=== PATIENT | female | born 1950 | race Caucasian/White ===

== ENCOUNTER 2019-10-01 11:26 | Inpatient (IN) | payer MEDICARE, OTHER ==
[~2019-10-01] VITALS: Ht 160 cm; Wt 100.0 kg
--- NOTE | ~2019-10-01 | HEMODYNAMI ---
PATIENT:MILES VU MEDICAL RECORD: [id number] : 52 LOCATION:[facility] D.2126 [facility]# [id number] ADMISSION DATE: 10/01/19 Generatedon:10/02/201914:51 Patient name: MILES VU Patient #: [id number] SSN: [id number] : 1950 Date of study: 10/02/2019 Page: Of Hemodynamic Procedure Report Patient Data Patient Demographics Procedure consent was obtained First Name: MILES Gender: Female Last Name: MIRELLA : 1950 Middle Initial: A Age: 69 year(s) Patient #: [id number] Race: SSN: [id number] Additional ID: [id number] Contact details Address: [facility] [address] State: [place] City: [place] Zip code: [address] Past Medical History Allergies Allergen Reaction Date Comments Reported Other allergy 10/02/2019 sULFA, cODEINE Admission Admission Data Admission Date: 10/01/2019 Admission Time: 14:49 Arrival Date: 10/02/2019 Arrival Time: 0:00 Admit Source: Other Insurance Payor: Medicare Room #: D.2126 [facility] #: [id number] Height (in.): 63 BSA: 2.02 (m2) Height (cm.): 160.02 BMI: 39.05 (kg/m2) Weight (lbs.): 220.46 Weight (kg.): 100 Lab Results Lab Result Date: 10/02/2019 Lab Result Time: 0:00 Biochemistry Name Units Result Min Max BUN mg/dl 20 --(----)*- 7 18 Creatinine mg/dl 0.7 --(*---)-- 0.6 1.3 eGFR ml/min 88.80561 -*(----)-- 90 120 NONAFRICAN CBC Name Units Result Min Max Hematocrit % 38.1 *-(----)-- 42 54 Hemoglobin g/dl 11.7 *-(----)-- 13.5 17.5 Procedure Procedure Types Cath Procedure Diagnostic Procedure C [facility] w/Coronaries Procedure Description Procedure Date Procedure Date: 10/02/2019 Procedure Start Time: 14:39 Procedure End Time: 14:49 Procedure Staff Name Function Ko Balderas MD Performing Physician Ellie Schultz RT Monitor Reyna Garcia RT Monitor Aissatou Jacobson RN Nurse Topher Murphy RT Scrub Procedure Data Cath Procedure Fluoroscopy Diagnostic fluoroscopy Total fluoroscopy Time: 2.1 time: 2.1 min min Diagnostic fluoroscopy Total fluoroscopy dose: 449 dose: 449 mGy mGy Contrast Material Contrast Material Type Amount (ml) Isovue 300 53 Entry Location Entry Primary Successful Side Size Upsize Upsize Entry Closure Pavon ccessful Closure Location (Fr) 1 (Fr) 2 (Fr) Remarks Device Remarks Radial Right 6 Fr Mechanical artery Short Compression Estimated blood loss: 5 ml Diagnostic catheters Device Type Used For End Catheter Placement DIAGNOSTIC York 110cm 5 Procedure Fr catheter ([id number]) Procedure Complications No complications Procedure Medications Medication Administration Route Dosage Oxygen etCO2 Nasal cannula 2 l/min Lidocaine 2% added to field 20 Heparin Flush Bag added to field 2 bags (1000units/500ml NS) 0.9% NaCl I.V. 100 ml/hr Versed I.V. 1 mg Fentanyl I.V. 100 mcg Radial Cocktail I.A. 1 syringe (Verapamil 2mg/Nitro 400mcg/Heparin 1500units) Fentanyl I.V. 50 mcg Hemodynamics Rest BSA: 2.02 (m2) HGB: 11.7 (g/dl) O2 Consumption: Estimated: 216.91 (ml/min) O2 Co nsumption indexed: Estimated:107.38 (ml/min/m) Heart Rate: 109 (bpm) Pressure Samples Time Site Value (mmHg) Purpose Heart Use Rate(bpm) 14:42 LV 153/-5,0 Snapshot 94 Gradients Valve Time Site Site Mean SEP/DFP Peak To Heart Use 1 2 (mmHg) (sec/min) Peak Rate (mmHg) (bpm) Aortic 14:43 LV AO 93 Snapshots Pre Cath Intra NCS Post Cath Vital Signs Time Heart Resp SPO2 etCO2 NIBP Rhythm Pain Sedation Rate (ipm) (%) (mmHg) (mmHg) Status Level (bpm) 14:31:49 94 19 94 37.4 138/71(95) NSR 0 (11) 10(A) , No pain 14:36:07 93 16 94 0 123/63(94) NSR 0 (11) 10(A) , No pain 14:40:23 88 12 95 0 118/65(90) NSR 0 (11) 9(A) , No pain 14:44:37 91 15 95 0 117/57(73) NSR 0 (11) 9(A) , No pain 14:48:53 95 18 96 2.9 125/65(91) NSR 0 (11) 9(A) , No pain Medications Time Medication Route Dose Verified Delivered Reason Notes Effectiveness by by 14:33:52 Oxygen etCO2 2 l/min Ko Buffie used for Nasal Andrey Jacobson RN procedure cannula 14:33:57 Lidocaine 2% added 20ml Ko Ko for local to vial Andrey Balderas MD anesthetic field 14:34:02 Heparin Flush added 2 bags Ko Ko used for Bag to Andrey Balderas MD procedure (1000units/500ml field NS) 14:34:10 0.9% NaCl I.V. 100 Ko Buffie Per ml/hr Andrey Jacobson RN physician 14:37:15 Versed I.V. 1 mg Ko Buffie for sedation Andrey Jacobson RN 14:37:29 Fentanyl I.V. 100 mcg Ko Buffie for sedation Andrey Jacobson RN 14:40:51 Radial Cocktail I.A. 1 Ko Ko for (Verapamil syringe Andrey Balderas MD vasodilation 2mg/Nitro 400mcg/Heparin 1500units) 14:41:00 Fentanyl I.V. 50 mcg Ko Ko for sedation Andrey Balderas MD Procedure Log Time Note 14:11:43 Admit Source: Other 14:12:10 Procedure Status Urgent Heart Cath (IP). 14:12:12 Aissatou Jacobson RN sent for patient. Start room use. 14:12:14 Time tracking: Regular hours (M-F 7:00 - 5:00) 14:12:19 Plan of Care:Hemodynamics will remain stable., Cardiac rhythm will remain stable., Comfort level will be maintained., Respiratory function will remain adequate., Patient/ family verbilizes understanding of procedure., Procedure tolerated without complication., Recovers from procedure without complications.. 14:13:03 H&P Date Dictated: 10/01/2019 Within 30 days and on chart., New H&P dictated by physician.. 14:13:38 Patient allergic to Other allergysULFA, cODEINE 14:14:20 Lab Result : BUN 20 mg/dl 14:14:20 Lab Result : Creatinine 0.7 mg/dl 14:14:20 Lab Result : eGFR NONAFRICAN 88.24642 ml/min 14:14:20 Lab Result : Hemoglobin 11.7 g/dl 14:14:20 Lab Result : Hematocrit 38.1 % 14:15:20 Lab results completed and on chart. 14:15:31 Stress Test: no; N/A NSTEMI 14:18:48 Risk of Mortality: .1 14:18:51 Risk of blood transfusion: 1.2 14:18:54 Risk of DAVID: .7 14:19:13 Informed consent obtained and on chart 14:20:26 Arrival Date: 10/02/2019 12:00:00 AM 14:20:30 Insurance Payor : Medicare 14:20:51 Patient Height : 63 inches 14:20:54 Patient Weight : 220.46 lbs 14:21:31 Patient received from Med II to CCL 1 Alert and oriented. Tansferred to table in Supine position. 14:21:32 Warm blankets applied, and tarun hugger turned on for patient comfort. 14:21:32 Correct patient and procedure confirmed by team. 14:21:33 ECG and BP/O2 sat monitors applied to patient. 14:21:37 Pre-procedure instructions explained to patient. 14:21:38 Pre-op teaching completed and patient verbalized understanding. 14:21:41 Family unavailable. 14:21:43 Patient NPO since Midnight. 14:21:49 Alarms reviewed by R. N. 14:21:50 Sharps counted by scrub and verified by R.N. 14:22:08 ACC Patient presents with Non-STEMI CCS Anginal Class 1--Ordinary physical activity does not cause angina, angina occurs with strenuos, rapid, or prolonged activity.. 14:30:43 Vital chart was started 14:30:47 Full Disclosure recording started 14:30:50 Is the patient allergic to Iodine/contrast media? No. 14:30:51 Was the patient premedicated? Yes 14:30:52 Is patient on blood thinner?No 14:30:55 Patient diabetic? Yes. 14:31:13 If on Metformin: Last Dose? 09/30/2019 14:31:16 Patient not . Patient is over age 55. 14:31:20 Previous problem with sedation/anesthesia? No ? 14:31:22 Snore? No 14:31:23 Sleep apnea? No 14:31:25 Deviated septum? No 14:31:26 Opens mouth fully? Yes 14:31:27 Sticks out tongue? Yes 14:31:32 Airway obstruction? No ? 14:31:34 Dentures? No ? 14:31:39 Baseline sample Acquired. 14:31:49 Pre procedure: right dorsailis pedis pulse 2+ Normal; easily identifiable; not easily obliterated 14:31:52 Modified David's test Ulnar < 7 seconds 14:31:55 Patient pain scale 0/10 ?. 14:32:07 Right Radial & Right Groin area was prepped with chlora-prep and draped in sterile fashion 14:32:27 IV patent on arrival in left antecubital with 0.9% NaCl at [facility]. 14:33:52 Oxygen 2 l/min etCO2 Nasal cannula was administered by Aissatou Jacobson RN; used for procedure; Verbal order read back and verified. 14:33:57 Lidocaine 2% 20ml vial added to field was administered by Ko Balderas MD; for local anesthetic; Verbal order read back and verified. 14:33:59 Rhythm: sinus rhythm 14:34:02 Heparin Flush Bag (1000units/500ml NS) 2 bags added to field was administered by Ko Balderas MD; used for procedure; Verbal order read back and verified. 14:34:03 Use device set Radial Dx or PCI 14:34:05 ACIST Syringe (05979) opened to sterile field. 14:34:06 Medline Cath Pack ([id number]) opened to sterile field. 14:34:07 Bag Decanter (2002S) opened to sterile field. 14:34:08 ACIST Hand Control (39256) opened to sterile field. 14:34:09 ACIST Manifold (92732) opened to sterile field. 14:34:10 0.9% NaCl 100 ml/hr I.V. was administered by Buffie Jacobson RN; Per physician; Verbal order read back and verified. 14:34:13 Tegaderm 4 x 4 (1626W) opened to sterile field. 14:34:14 MBrace Wrist Support ([id number]) opened to sterile field. 14:34:15 NEEDLE Cook 21G 4cm Radial (D86470) opened to sterile field. 14:34:17 EMERALD Guide Wire (171-488) opened to sterile field. 14:34:17 SHEATH 6FR RAIN (0932246) opened to sterile field. 14:35:07 Zero performed for pressure channel P1 14:35:11 --------ALL STOP TIME OUT------ 14:35:12 Final Timeout: patient, procedure, and site verified with staff and physician. All members of the team are in agreement. 14:35:14 Right Radial & Right Groin site verified by team. 14:35:19 Fire Safety Assessment: A--An alcohol-based skin anteseptic being used preoperatively., C--Open oxygen or nitrous oxide is being used., D--An ESU, laser, or fiber-optic light is being used. 14:35:24 Physical assessment completed. ASA score P 2 - A patient with mild systemic disease as per Ko Balderas MD. 14:35:27 2) 60-89 Mildly reduced kidney function, and other findings (as for stage 1) point to kidney disease. 14:35:32 Maximum allowable contrast dose (3.7 X eGFR X 0.75)244 ml. 14:35:37 Sedation plan: IV Moderate Sedation Medication:Versed, Fentanyl 14:36:31 Zero performed for pressure channel P1 14:36:42 Zero performed for pressure channel P1 14:36:50 Zero performed for pressure channel P1 14:37:04 Zero performed for pressure channel P1 14:37:15 Versed 1 mg I.V. was administered by Aissatou Jacobson RN; for sedation; Verbal order read back and verified. 14:37:29 Fentanyl 100 mcg I.V. was administered by Aissatou Jacobson RN; for sedation; Verbal order read back and verified. 14:38:10 Procedure started. 14:39:16 Local anesthetic to right radial artery with Lidocaine 2% by Ko Balderas MD.INITIAL ACCESS ONLY 14:40:22 A 6 Fr Short sheath was inserted into the Right Radial artery 14:40:31 A DIAGNOSTIC York 110cm 5 Fr catheter (123140) was advanced over the wire and used for Procedure. 14:40:47 TUBING High Pressure Extension Tubing (Andrey) (ZX2126N) opened to sterile field. 14:40:51 Radial Cocktail (Verapamil 2mg/Nitro 400mcg/Heparin 1500units) 1 syringe I.A. was administered by Ko Balderas MD; for vasodilation; Verbal order read back and verified. 14:41:00 Fentanyl 50 mcg I.V. was administered by Ko Balderas MD; for sedation; Verbal order read back and verified. 14:41:40 LV gram done using CONTRERAS 14:41:44 Injector settings: Ml/sec: 5, Volume: 15, 14:42:47 LV hemodynamics recorded. 14:43:01 EF : 60 % 14:43:57 LCA angiography performed. 14:46:11 RCA angiography performed. 14:46:18 ACCDominant side:Left 14:46:29 Catheter removed. 14:46:42 Sheath removed intact; hemostasis achieved with Mechanical Compression to the Right Radial artery. 14:46:46 ZEPHYR REGULAR TR BAND (048662) opened to sterile field. 14:46:50 Procedure ended.(Physican Out) 14:46:55 Fluoroscopy time 02.10 minutes. 14:47:00 Fluoroscopy dose: 449 mGy 14:47:00 Flurop Dose total: 449 14:47:05 Dose Area Product 34393 mGy/cm. 14:47:23 Contrast amount:Isovue 300 53ml. 14:47:26 Maximum allowable dose exceeded? No. 14:47:27 Sharps counted by scrub and verified by R.N. 14:47:31 Geneva band inflated with 10cc of air. 14:47:42 Post-procedure physical assessment completed. ASA score P 2 - A patient with mild systemic disease as per Ko Balderas MD. 14:47:45 Post procedure rhythm: unchanged. 14:47:48 Estimated blood loss: 5 ml 14:47:50 Post procedure instruction explained to patient.Patient verbalizes understanding. 14:47:51 Patient needs reinforcement of post procedure teaching. 14:49:07 Procedure and supply charges have been captured, reviewed, submitted and are correct. 14:49:12 Procedure Complication : No complications 14:49:15 Vital chart was stopped 14:49:16 [facility] Findings: mild to moderate CAD (<70%) 14:49:18 Operative report dictated upon procedure completion. 14:49:21 See physician's report for complete and final results. 14:49:22 See physician's report for complete and final results. 14:49:24 Report given to [facility]. 14:49:37 Patient transfered to [facility] with Bed. 14:49:40 Procedure ended. 14:49:40 Full Disclosure recording stopped 14:50:06 End room use (Document Last) 14:50:18 End room use (Document Last) 14:50:36 End room use (Document Last) Device Usage Item Name Manufacture Quantity Catalog Hospital Part Current Minima l Lot# / Number Charge Number Stock Stock Serial# Code ACIST Acist 1 09199 588974 [id number] [id number] 20 Syringe Medical (07975) Systems Inc Medline Medline 1 [id number] 203270 56611 121559 5 Cath Pack ([id number]) Bag Microtek 1 075407 67130 665413 5 Decanter Medical Inc. () ACIST Hand Acist 1 64475 591685 494463 666532 5 Control Medical (23612) Systems Inc ACIST Acist 1 67722 248067 039516 636949 5 Manifold Medical (79820) Systems Inc Tegaderm 4 3M 1 1626W 735327 992765 511914 5 x 4 (1626W) MBrace Advanced 1 140-0250-00 675510 95625 771675 5 Wrist Vascular Support Dynamics ([id number]) NEEDLE Cook Cook Medical 1 J08106 835815 223400 996349 5 21G 4cm Radial (Z52633) EMERALD Cardinal 1 502-455 199610 924997 892571 5 Guide Wire [facility] (835-455) SHEATH 6FR Cardinal 1 2714796 317499 2956018 072066 5 [facility] (3118867) DIAGNOSTIC Terumo 1 40-0273 536640 704864 960752 5 York 110cm 5 Fr catheter (276554) TUBING High Merit 1 [id number] 953959 35221 037614 10 Pressure Medical Extension Tubing (Balderas) (AY2316U) ZEPHYR Cardinal 1 082333 472130 9555249 679180 5 REGULAR TR Health BAND (023872) Signature Audit Beaman Stage Time Signature Unsigned Intra-Procedure 10/02/2019 Reyna Garcia 2:50:18 PM RT(R) Intra-Procedure 10/02/2019 Aissatou Jacobson RN 2:50:36 PM Intra-Procedure 10/02/2019 Ko Balderas MD 2:51:21 PM [facility] [address] [facility]
[2019-10-01] MEDS ORDERED: PIOGLITAZONE15 MG PO ×2 (11:35→11:38)
[2019-10-01] MEDS ORDERED: GLUCOTROL 5 MG T5 MG PO (11:35)
[2019-10-01] MEDS ORDERED: METFORMIN HCL500 M1 PO (11:37)
[2019-10-01] MEDS ORDERED: LIPITOR10 MG PO (11:38)
[2019-10-01] MEDS ORDERED: VASOTEC5 MG (11:39)
[2019-10-01] MEDS ORDERED: CARDIZEM120 MG PO (11:39)
[2019-10-01] MEDS ORDERED: LANTUS SOL100 UNIT/1 (11:40)
[2019-10-01] MEDS ORDERED: LANOXIN125 MCG PO (11:40)
[2019-10-01 12:33] LABS: BASOPHILS 0.1 % (0-2); EOSINOPHILS 0.9 % (0-7); HEMATOCRIT 39.9 % (36.0-48.0); HEMOGLOBIN 12.4 g/dL (12-16); IMMATURE GRANULOCYTES 0.3 % (0-5); LYMPHOCYTES 9.6 % (15-50); MCH 28.8 pg (26.0-34.0); MCHC 31.1 g/dL (31.0-37.0); MCV 92.6 fL (80.0-100.0); MEAN PLATELET VOLUME 8.8 fL (7.4-10.4); MONOCYTES 6.6 % (2-11); NEUTROPHILS 82.5 % (40-80); PLATELET COUNT 362 10x3/uL (130-400); RBC 4.31 10x6/uL (4.00-5.40); RDW 13.9 % (11.5-14.5); WBC 12.3 10x3/uL (4.8-10.8)
[2019-10-01 12:42] LABS: CALC OSMOLALITY 291 mosm/kg (275-300); CALCIUM 9.4 mg/dL (8.5-10.1); CARBON DIOXIDE 25.7 mmol/L (21.0-32.0); CHLORIDE - SERUM 101 mmol/L (98-107); CREATININE - SERUM 1.1 mg/dL (0.6-1.3); GLUCOSE 307 mg/dL (74-106); POTASSIUM - SERUM 5.1 mmol/L (3.5-5.1); SODIUM 138 mmol/L (136-145); UREA NITROGEN 25 mg/dL (7-18); eGFR NON AFRICAN AMERICAN 52 mL/min (90-120)
[2019-10-01 12:47] LABS: INR 1.01 (0.85-1.17); PROTIME 12.8 SECONDS (11.6-15.0)
[2019-10-01 13:04] LABS: ALBUMIN 3.2 g/dL (3.4-5.0); ALKALINE PHOSPHATASE 106 U/L (46-116); ALT (SGPT) 253 U/L (10-68); BILIRUBIN - TOTAL 0.22 mg/dL (0.2-1.3); CKMB 1.5 U/L (0.0-3.6); CREATINE KINASE 52 UL (21-215); MAGNESIUM - SERUM 1.9 mg/dL (1.8-2.4); PRO BNP 485 pg/mL (0-125); PROTEIN - SERUM 7.5 g/dL (6.4-8.2)
[2019-10-01 13:22] LABS: TROPONIN-I 0.181 ng/mL (0.000-0.060)
[2019-10-01 13:51] VITALS: BP 104/60
[2019-10-01 15:30] VITALS: BP 119/64
--- NOTE | 2019-10-01 15:49 | NUR ---
FSBS= 90 MG/DL. DIABETIC MEAL TRAY SERVED.
--- NOTE | 2019-10-01 16:06 | NUR ---
REPORT TO JANETH PAINTER
[2019-10-01 16:10] VITALS: BP 118/62
--- NOTE | 2019-10-01 16:10 | NUR ---
TRANSPORTED TO ROOM #2126, CONDITION STABLE
[2019-10-01 16:30] VITALS: BP 119/64; Ht 160 cm; Wt 100.0 kg
[2019-10-01 19:22] LABS: CKMB 1.6 U/L (0.0-3.6); CREATINE KINASE 54 UL (21-215)
[2019-10-01 19:23] LABS: TROPONIN-I 0.336 ng/mL (0.000-0.060)
--- NOTE | 2019-10-01 20:00 | NUR ---
RECEIVED BEDSIDE REPORT. PATIENT IS ALERT AND ORIENTED, RESTING COMFORTABLY IN BED. RESPIRATIONS ARE EVEN AND UNLABORED. NO S/S OF DISTRESS. NO C/O PAIN. PATIENT WAS CONCERNED ABOUT HER LANTUS NOT BEING ORDERED. PAGED MARLON IZAGUIRRE. NO NEW ORDERS GIVEN. PER MARLON IZAGUIRRE EXPLAINED TO PATIENT THAT WITH CP THEY DON'T LIKE TO ORDER THE LONG LASTING INSULIN. HER REQUEST CAN BE REVISTED IN THE MORNING WHEN DR. PEREIRA OR DR. OLIVA ARE HERE.
[2019-10-01 20:34] VITALS: BP 128/38
[2019-10-02 01:10] VITALS: BP 127/43
[2019-10-02 02:02] LABS: CKMB 1.5 U/L (0.0-3.6); CREATINE KINASE 50 UL (21-215); TROPONIN-I 0.318 ng/mL (0.000-0.060)
[2019-10-02 05:58] VITALS: BP 124/54
[2019-10-02 06:47] LABS: BASOPHILS 0.3 % (0-2); EOSINOPHILS 2.8 % (0-7); HEMATOCRIT 38.1 % (36.0-48.0); HEMOGLOBIN 11.7 g/dL (12-16); IMMATURE GRANULOCYTES 0.1 % (0-5); LYMPHOCYTES 18.3 % (15-50); MCH 28.2 pg (26.0-34.0); MCHC 30.7 g/dL (31.0-37.0); MCV 91.8 fL (80.0-100.0); MEAN PLATELET VOLUME 8.7 fL (7.4-10.4); MONOCYTES 7.5 % (2-11); PLATELET COUNT 377 10x3/uL (130-400); RBC 4.15 10x6/uL (4.00-5.40); RDW 14.1 % (11.5-14.5)
[2019-10-02 07:13] LABS: WBC 7.8 10x3/uL (4.8-10.8)
[2019-10-02 07:14] LABS: ALKALINE PHOSPHATASE 92 U/L (46-116); ALT (SGPT) 160 U/L (10-68); BILIRUBIN - TOTAL 0.31 mg/dL (0.2-1.3); CALC OSMOLALITY 290 mosm/kg (275-300); CARBON DIOXIDE 30.4 mmol/L (21.0-32.0); CHLORIDE - SERUM 105 mmol/L (98-107); CKMB 1.3 U/L (0.0-3.6); CREATINE KINASE 45 UL (21-215); CREATININE - SERUM 0.7 mg/dL (0.6-1.3); GLUCOSE 191 mg/dL (74-106); MAGNESIUM - SERUM 1.6 mg/dL (1.8-2.4); POTASSIUM - SERUM 4.4 mmol/L (3.5-5.1); PROTEIN - SERUM 7.2 g/dL (6.4-8.2); SODIUM 142 mmol/L (136-145); TROPONIN-I 0.287 ng/mL (0.000-0.060); UREA NITROGEN 20 mg/dL (7-18); eGFR NON AFRICAN AMERICAN 88 mL/min (90-120)
--- NOTE | 2019-10-02 07:29 | NUR ---
REPORT RECEIVED FROM COMMUNITY CASE MANAGER AND PATIENT CARE ASSUMED. PATIENT LAYING IN BED ON BACK WITH EYES CLOSED AND BREATHING EVENLY. VSS. DTR ASLEEP AT BS. WILL CONTINUE WITH PLAN OF CARE. SR UP X 2 BED IN LOW POSITION AND CALL LIGHT IN REACH.
[2019-10-02 09:04] VITALS: BP 150/74
--- NOTE | 2019-10-02 10:12 | NUR ---
[id number] SITTIN UP IN BED WATCHING A MOVIE AND DTR AT BS PATIENT IS STABLE AND VSS. PATIENT DENIES ANY NEEDS OR PAIN. WILL CONTINUE TO MONITOR. SR UP X 2 BED IN LOW POSITION AND CALL LIGHT IN REACH.
[2019-10-02 12:25] VITALS: BP 117/50
--- NOTE | 2019-10-02 12:30 | NUR ---
ORDER RECEIVED FOR HEART CATH. PATIENT IS NPO. EKG PERFORMED AND HIBICLENS BATH GIVEN. PATIENT IS STABLE AND VSS. PATIENT DENIES ANY NEEDS OR PAIN. DTR AT BS. WILL CONTINUE WITH PLAN OF CARE. SR UP X 2 BED IN LOW POSITION AND CALL LIGHT IN REACH.
[2019-10-02 12:49] LABS: CHOL - HDL RATIO 3.1 ratio (2.3-4.1); LDL-HDL RATIO 1.4 ratio (1.5-3.5)
--- NOTE | 2019-10-02 13:50 | NUR ---
PHONE CALL FROM SUPERVISOR WOOL SHEARING TO PREOP PATIENT. PREOP GIVEN TO PATIENT PER MAR . PATIENT TOLERATED WELL. DTR AT BS. SR UP X 2 BED IN LOW POSITION AND CALL LIGHT IN REACH.
--- NOTE | 2019-10-02 14:15 | NUR ---
PATIENT IS STABLE AND VSS. PATIENT TO LEADERSHIP RECRUITER VIA HOSPITAL BED AND LEADERSHIP RECRUITER PERSONNEL.
--- NOTE | 2019-10-02 15:20 | NUR ---
PATIENT REURNED FROM [employer]IC INSTRUCTOR VIA HOSPITAL BED AND H[employer] MUSIC INSTRUCTOR PERSONNEL . PATIENT HAD CLEAN CATH AND HAS TR BAND TO RT WIRST. NO BLEEDING, BRUISING OR HEMATOMA NOTED. PATIENT IS AWAKE AND SLEEPY. PATIENT IS STABLE AND VSS. FREQUENT VS STARTED. PATIENT GIVEN WATER AND JELLO. PATIENT DENIES ANY NEEDS OR PAIN. DTR AT BS WILL CONTINUE TO MONITOR. SR UP X 2 BED IN LOW POSITION AND CALL LIGHT IN REACH.
[2019-10-02 16:17] VITALS: BP 121/60
--- NOTE | 2019-10-02 17:01 | NUR ---
PATIENT IS STABLE AND VSS. REMOVED REMAINING AIR FROM RT RADIAL TR BAND. NO BLEEDING , BRUISING OR HEMATOMA NOTED. PATIENT IS SLEEPING BUT AROUSES TO VOICE EASILY. DTR AT BS. WILL CONTINUE TO MONITOR. SR UP X 2 BED IN LOW POSITION AND CALL LIGHT IN REACH.
--- NOTE | 2019-10-02 18:09 | NUR ---
PATIENT IS STABLE AND VSS. NO SIGNS OF BLEEDING BRUISING OR HEMATOMA TO RT RADIAL/WRIST. PATIENT AND FAMILY QUESTIONED NURSE IF PATIENT GOING HOME TONIGHT OR NOT. NO DISPOSITION NOTE IN COMPUTER. CALLED LILI BYNUM WITH DR MOSS. SHE STATES THAT FROM CARDIAC STAND PAPOINT PATIENT IS CLEARED TO GO HOME AND DOES NOT NEED A FOLLOW UP WITH CARDIOLOGY. BROWNBill MASON APN WITH DR DORAN. HE STATED THAT HE WILL BE IN TO SEE PATIENT IN ROOM AND DISCUSS WITH PATIENT. INFORMED PATIENT AND FAMILY .
[2019-10-02 20:00] VITALS: BP 128/62
--- NOTE | 2019-10-02 21:53 | NUR ---
MARLON PEARSON IN PT'S ROOM. ORDERED STAT MAG. PT FSBS 310. WILL ADMINISTER INSULIN PER SLIDING SC. PT DENIES ANY FURTHER NEEDS AT THIS TIME. WILL CPOC.
[2019-10-03] VITALS: BP 113/56
[2019-10-03 04:00] VITALS: BP 114/60
[2019-10-03 06:01] LABS: BASOPHILS 0.3 % (0-2); EOSINOPHILS 3.8 % (0-7); HEMATOCRIT 39.5 % (36.0-48.0); HEMOGLOBIN 12.3 g/dL (12-16); IMMATURE GRANULOCYTES 0.3 % (0-5); LYMPHOCYTES 17.3 % (15-50); MCH 28.5 pg (26.0-34.0); MCHC 31.1 g/dL (31.0-37.0); MCV 91.6 fL (80.0-100.0); MEAN PLATELET VOLUME 8.8 fL (7.4-10.4); MONOCYTES 7.3 % (2-11); PLATELET COUNT 370 10x3/uL (130-400); RBC 4.31 10x6/uL (4.00-5.40); RDW 13.9 % (11.5-14.5); WBC 7.7 10x3/uL (4.8-10.8)
[2019-10-03 06:24] LABS: ALKALINE PHOSPHATASE 85 U/L (46-116); BILIRUBIN - TOTAL 0.29 mg/dL (0.2-1.3); CALCIUM 8.9 mg/dL (8.5-10.1); CARBON DIOXIDE 30.9 mmol/L (21.0-32.0); CHLORIDE - SERUM 106 mmol/L (98-107); CREATININE - SERUM 0.6 mg/dL (0.6-1.3); GLUCOSE 228 mg/dL (74-106); MAGNESIUM - SERUM 1.8 mg/dL (1.8-2.4); POTASSIUM - SERUM 4.7 mmol/L (3.5-5.1); PROTEIN - SERUM 6.7 g/dL (6.4-8.2); SODIUM 142 mmol/L (136-145); eGFR NON AFRICAN AMERICAN > 90 mL/min (90-120)
[2019-10-03 06:25] LABS: ALT (SGPT) 117 U/L (10-68); CALC OSMOLALITY 289 mosm/kg (275-300); UREA NITROGEN 13 mg/dL (7-18)
[2019-10-03 08:00] VITALS: BP 143/64
--- NOTE | 2019-10-03 09:51 | NUR ---
AM MEDS GIVEN AT THIS TIME. PT A LITTLE UPSET BECAUSE HER DIABETIC MEDICATIONS HAVE NOT BEEN STARTED. ALSO WANTS TO GO HOME. INFORMED PT THAT DOCTORS WOULD BE BY LATER TODAY. PT DENIES ANY NEEDS AT THIS TIME. CALL LIGHT IN REACH, NAD NOTED, WILL CONTINUE TO MONITOR.
[2019-10-03 12:00] VITALS: BP 130/63
--- NOTE | 2019-10-03 13:09 | NUR ---
REFUSED FLU SHOT FOR THIS VISIT
--- NOTE | 2019-10-03 13:34 | NUR ---
PROVIDED VERBAL AND WRITTEN DISHCARGE TEACHING, PT VERBALIZED UNDERSTANDING REGARDING TEACHING. D/C WRIST IV WITH CATHETER TIP INTACT. PT CANNOT LEAVE UNTIL AFTER 1500 SINCE SHE IS DRIVING HERSELF HOME.
--- NOTE | 2019-10-03 13:48 | MORECARE ---
CASE MANAGEMENT DISCHARGE SUMMARY PATIENT: BETSY VU UNIT: [id number] ADM DATE: 10/02/19 AGE: 69 : 51 SEX: F ROOM/BED: D.2126 AUTHOR: ANTONETTE PÉREZ PHYSICIAN: REFERRING PHYSICIAN: SUHA LUND MD DATE OF SERVICE: 10/03/19 Discharge Plan Patient Name: BETSY VU Facility: [facility]:[place] : 1950 Planned Disposition: Home Anticipated Discharge Date: 10/05/19 Discharge Date: Expected LOS: 3 Initial Reviewer: [email or web address] Initial Review Date: 10/01/2019 Generated: 10/03/19 2:48 pm DCPIA - Discharge Planning Initial Assessment Updated by [email or web address]: Lilliana Bhatia on 10/03/19 1:47 pm * Is the patient Alert and Oriented? Yes * How many steps to enter\exit or inside your home? 15 * PCP Dr. Warner * Pharmacy [facility] * Preadmission Environment Home Alone * ADLs Independent * Equipment Glucometer * List name and contact numbers for known caregivers / representatives who currently or will assist patient after discharge: Racheal Vu - daughter - [phone] * Verbal permission to speak to the caregivers and representatives has been obtained from the patient. Yes * Community resources currently utilized None * Additional services required to return to the preadmission environment? No * Can the patient safely return to the preadmission environment? Yes * Has this patient been hospitalized within the prior 30 days at any hospital? No Coverage Notice Reviewer: [email or web address] Peace Villegas Notice Issued Date-Time: 10/01/2019 15:40 Notice Type: Medicare Outpatient Observation Notice Notice Delivered To: Patient Relationship to Patient: Self Magazine Feeder Name: Betsy Vu Delivery Method: HAND - Hand Delivered Tari Days: Prior Verbal Notification: Recipient Understood Notice: Yes Recipient Signature: Yes Med Rec Note Co-signed by Attending: Coverage Notice Comment: SANTORO delivered to and signed by patient. Original given to patient and placed on chart. Patient Name: BETSY VU Page [phone] at 1348 All edits/amendments must be made on the electronic document DICTATION DATE: 10/03/191347 MATERIAL PLANNER: JH 10/03/191347 RPT#: [id number] MA DATE: STATUS: ADM IN [facility] [address] [place] [address] END OF REPORT
--- NOTE | 2019-10-03 13:58 | MORECARE ---
CASE MANAGEMENT DISCHARGE SUMMARY PATIENT: BETSY VU UNIT: [id number] ADM DATE: 10/02/19 AGE: 69 : 51 SEX: F ROOM/BED: D.0306 AUTHOR: BETODOC PHYSICIAN: REFERRING PHYSICIAN: SUHA LUND MD DATE OF SERVICE: 10/03/19 Discharge Plan Patient Name: BETSY VU Facility: [facility]:[place] : 1950 Planned Disposition: Home Anticipated Discharge Date: 10/05/19 Discharge Date: Expected LOS: 3 Initial Reviewer: [email or web address] Initial Review Date: 10/01/2019 Generated: 10/03/19 2:57 pm Comments DCP- Discharge Planning Updated by [email or web address]: Lilliana Bhatia on 10/03/19 12:[address] DC PLAN: Return home independently alone. ANTICIPATED DC NEEDS: Denied known dc needs. CM met with patient to complete initial dc planning assessment. CM educated patient on the CM role and verbal consent given by patient to complete assessment. CM verified patient's address, phone number, and emergency contact phone numbers. Patient lives at home alone and reports she is independent and still works. At discharge patient plans to return home and feels this is a safe discharge. CM discussed availability of home health, rehab services, and medical equipment. Patient denied known discharge needs at this time. Patient reports her car is at Dr. Warner's office and she will call a friend to help her get back to her car at time of discharge. CM will continue to follow and will assist as needed with dc plans/needs. Lilliana Bhatia RN, [facility] DCPIA - Discharge Planning Initial Assessment Updated by [email or web address]: Lilliana Bhatia on 10/03/19 1:47 pm * Is the patient Alert and Oriented? Yes * How many steps to enter\exit or inside your home? 15 * PCP Dr. Warner * Pharmacy [facility] * Preadmission Environment Home Alone * ADLs Independent * Equipment Glucometer * List name and contact numbers for known caregivers / representatives who currently or will assist patient after discharge: Racheal Vu - daughter - [phone] * Verbal permission to speak to the caregivers and representatives has been obtained from the patient. Yes * Community resources currently utilized None * Additional services required to return to the preadmission environment? No * Can the patient safely return to the preadmission environment? Yes * Has this patient been hospitalized within the prior 30 days at any hospital? No Coverage Notice Reviewer: [email or web address] Peace Villegas Notice Issued Date-Time: 10/01/2019 15:40 Notice Type: Medicare Outpatient Observation Notice Notice Delivered To: Patient Relationship to Patient: Self [employer] Workers Name: Betsy Vu Delivery Method: HAND - Hand Delivered Tari Days: Prior Verbal Notification: Recipient Understood Notice: Yes Recipient Signature: Yes Med Rec Note Co-signed by Attending: Coverage Notice Comment: SANTORO delivered to and signed by patient. Original given to patient and placed on chart. Last DP export: 10/03/19 12:48 Patient Name: BETSY VU Page [phone] at 1358 All edits/amendments must be made on the electronic document DICTATION DATE: 10/03/19 135 ACCOUNTING BOOKKEEPER: JH 10/03/19 1357 RPT#: [id number] DC DATE: STATUS: ADM IN [facility] [address] [place] [address] END OF REPORT
--- NOTE | 2019-10-04 08:46 | MORECARE ---
CASE MANAGEMENT DISCHARGE SUMMARY PATIENT: BETSY VU UNIT: [id number] ADM DATE: 10/02/19 AGE: 69 : 51 SEX: F ROOM/BED: D.8226 AUTHOR: ANTONETTE PÉREZ PHYSICIAN: REFERRING PHYSICIAN: SUHA LUND MD DATE OF SERVICE: 10/04/19 Discharge Plan Patient Name: BETSY VU Facility: [facility]:[place] : 1950 Planned Disposition: Home Anticipated Discharge Date: 10/05/19 Discharge Date: 10/03/2019 Expected LOS: 3 Initial Reviewer: [email or web address] Initial Review Date: 10/01/2019 Generated: 10/04/19 9:46 am Comments DCP- Discharge Planning Updated by [email or web address]: Lilliana Bhatia on 10/03/19 12:[address] DC PLAN: Return home independently alone. ANTICIPATED DC NEEDS: Denied known dc needs. CM met with patient to complete initial dc planning assessment. CM educated patient on the CM role and verbal consent given by patient to complete assessment. CM verified patient's address, phone number, and emergency contact phone numbers. Patient lives at home alone and reports she is independent and still works. At discharge patient plans to return home and feels this is a safe discharge. CM discussed availability of home health, rehab services, and medical equipment. Patient denied known discharge needs at this time. Patient reports her car is at Dr. Warner's office and she will call a friend to help her get back to her car at time of discharge. CM will continue to follow and will assist as needed with dc plans/needs. Lilliana Bhatia RN, [facility] DCPIA - Discharge Planning Initial Assessment Updated by [email or web address]: Lilliana Bhatia on 10/03/19 1:47 pm * Is the patient Alert and Oriented? Yes * How many steps to enter\exit or inside your home? 15 * PCP Dr. Warner * Pharmacy [facility] * Preadmission Environment Home Alone * ADLs Independent * Equipment Glucometer * List name and contact numbers for known caregivers / representatives who currently or will assist patient after discharge: Racheal Vu - daughter - [phone] * Verbal permission to speak to the caregivers and representatives has been obtained from the patient. Yes * Community resources currently utilized None * Additional services required to return to the preadmission environment? No * Can the patient safely return to the preadmission environment? Yes * Has this patient been hospitalized within the prior 30 days at any hospital? No Coverage Notice Reviewer: [id number] Peace Villegas Notice Issued Date-Time: 10/01/2019 15:40 Notice Type: Medicare Outpatient Observation Notice Notice Delivered To: Patient Relationship to Patient: Self Replanting Machine Operator Name: Betsy Vu Delivery Method: HAND - Hand Delivered Tari Days: Prior Verbal Notification: Recipient Understood Notice: Yes Recipient Signature: Yes Med Rec Note Co-signed by Attending: Coverage Notice Comment: SANTORO delivered to and signed by patient. Original given to patient and placed on chart. Last DP export: 10/03/19 12:58 Patient Name: BETSY VU Page [id number] at 0846 All edits/amendments must be made on the electronic document DICTATION DATE: 10/04/19844 BUSINESS DEVELOPMENT SPECIALIST: JH 10/04/19844 RPT#: [id number] DC DATE:10/03/19 STATUS: DIS IN [facility] [address] [place] [address] END OF REPORT
== END 2019-10-03 15:49 | disposition home or self-care (01) | DRG 281 ==
LOC: D.ER 11:26 → OBSVTIME 14:49 → D.M2 14:49 → D.SDCHOLD 10-03 13:25 → D.M2 10-03 13:25
PROVIDERS: Family Medicine; Internal Medicine Cardiovascular Disease; ADMIT Family Medicine Adult Medicine; ATTEND Family Medicine Adult Medicine
PROC: B2151ZZ Fluoroscopy of Left Heart using Low Osmolar Contrast (ICD-10-PCS; 2019-10-02)
PROC: 4A023N7 Measurement of Cardiac Sampling and Pressure, Left Heart, Percutaneous Approach (ICD-10-PCS; 2019-10-02)
PROC: B2111ZZ Fluoroscopy of Multiple Coronary Arteries using Low Osmolar Contrast (ICD-10-PCS; principal; 2019-10-02 14:12)
DX: I21.A1 Myocardial infarction type 2 (principal); I47.1 Supraventricular tachycardia; E11.65 Type 2 diabetes mellitus with hyperglycemia

== ENCOUNTER 2020-08-05 12:36 | Inpatient (IN) | payer OTHER ==
[~2020-08-05] VITALS: Ht 160 cm; Wt 109.3 kg
[2020-08-05] VITALS (10 sets, daily range): BP systolic 94–128; BP diastolic 52–79
--- NOTE | ~2020-08-05 | HEMODYNAMI ---
PATIENT:MILES VU MEDICAL RECORD: [id number] : 52 LOCATION[facility] D.[id number] ADMISSION DATE: 08/05/20 Generatedon:08/11/202011:01 Patient name: MILES VU Patient #: [id number] SSN: [id number] : 1950 Date of study: 08/11/2020 Page: Of Hemodynamic Procedure Report Patient Data Patient Demographics Procedure consent was obtained First Name: MILES Gender: Female Last Name: MIRELLA : 1950 Middle Initial: A Age: 69 year(s) Patient #: [id number] Race: SSN: [id number] Additional ID: [id number] Contact details Address: [facility] [address] State: [place] City: [place] Zip code: [address] Past Medical History Allergies Allergen Reaction Date Comments Reported Other allergy 10/02/2019 sULFA, cODEINE Other allergy 08/11/2020 CODEINE, SULFA Admission Admission Data Admission Date: 08/05/2020 Admission Time: 16:42 Room #: D.2122 Height (in.): 62.99 BSA: 2.1 (m2) Height (cm.): 160 BMI: 42.97 (kg/m2) Weight (lbs.): 242.51 Weight (kg.): 110 Lab Results Lab Result Date: 08/11/2020 Lab Result Time: 0:00 Biochemistry Name Units Result Min Max BUN mg/dl 31 --(----)-* 7 18 Creatinine mg/dl 1 --(--*-)-- 0.6 1.3 eGFR ml/min 58 *-(----)-- 90 120 NONAFRICAN CBC Name Units Result Min Max Hematocrit % 33.6 *-(----)-- 42 54 Hemoglobin g/dl 9.8 *-(----)-- 13.5 17.5 Procedure Procedure Types Cath Procedure Diagnostic Procedure Cardioversion External LOGAN Procedure Description Procedure Date Procedure Date: 08/11/2020 Procedure Start Time: 10:47 Procedure End Time: 11:00 Procedure Staff Name Function Antoni Crawford MD Performing Physician Yaneth Briceño Pocket Grinder Operator Ellie Schultz RT Monitor Aissatou Jacobson RN Nurse Mil Hathaway CRNA Additional personnel Procedure Data Cath Procedure Fluoroscopy Diagnostic fluoroscopy Total fluoroscopy Time: 0 time: 0 min min Diagnostic fluoroscopy Total fluoroscopy dose: 0 dose: 0 mGy mGy Estimated blood loss: 0 ml Procedure Complications No complications Procedure Medications Medication Administration Route Dosage Oxygen 8 l/min Hurricaine [place] P.O. 1 Sprays Refer to Anesthesia Notes for Sedation Medications Hemodynamics Rest BSA: 2.1 (m2) HGB: 9.8 (g/dl) O2 Consumption: Estimated: 240.36 (ml/min) O2 Consumption indexed: Estimated:114.46 (ml/min/m) Heart Rate: 128 (bpm) Snapshots Pre Cath Intra NCS Post Cath Vital Signs Time Heart Resp SPO2 NIBP Rhythm Pain Sedation Rate (ipm) (%) (mmHg) Status Level (bpm) 10:28:34 128 35 90 119/70(90) A-Flutter (Missing) 10(A) 10:32:47 126 44 96 126/78(98) A-Flutter (Missing) 10(A) 10:37:06 128 35 100 127/77(98) A-Flutter (Missing) 10(A) 10:41:17 127 72 100 127/76(89) A-Flutter (Missing) 10(A) 10:45:35 127 35 100 122/74(95) A-Flutter (Missing) 10(A) 10:49:51 121 16 99 110/59(93) A-Flutter (Missing) 9(A) 10:54:06 84 18 94 108/59(74) SB (Missing) 10(A) 10:58:17 98 102/63(75) SB (Missing) 10(A) Medications Time Medication Route Dose Verified Delivered Reason Notes Effective ness by by 10:35:37 Oxygen simple 8 Antoni Reyez used for mask l/min St Marko Jacobson RN procedure 10:35:47 Hurricaine P.O. 1 Antoni Reyez Per [place] Sprays St Marko Jacobson RN physician 10:35:56 Refer to Antoni Reyez Anesthesia St Marko Jacobson RN Notes for MD Sedation Medications Procedure Log Time Note 10:04:16 Informed consent obtained and on chart 10:04:40 Procedure Status Cardioversion, LOGAN. 10::41 Time tracking: Regular hours (M-F 7:00 - 5:00) 10:04:46 Plan of Care:Hemodynamics will remain stable., Cardiac rhythm will remain stable., Comfort level will be maintained., Respiratory function will remain adequate., Patient/ family verbilizes understanding of procedure., Procedure tolerated without complication., Recovers from procedure without complications.. 10:04:48 Ellie Schultz RT(R) sent for patient. Start room use. 10:19:14 Patient arrived from Med II to CCL 3. Patient remains on bed/stretcher for procedure. 10:19:16 Warm blankets applied, and tarun hugger turned on for patient comfort. 10:19:16 Correct patient and procedure confirmed by team. 10:19:17 ECG and BP/O2 sat monitors applied to patient. 10:19:19 Full Disclosure recording started 10:19:20 Pre-procedure instructions explained to patient. 10:19:21 Pre-op teaching completed and patient verbalized understanding. 10:19:22 Family unavailable. 10:19:24 Patient NPO since Midnight. 10:19:28 Patient diabetic? Yes. 10:19:29 If diabetic: On Metformin? Yes 10:19:37 Is the patient allergic to Iodine/contrast media? No. 10:19:38 Is patient on blood thinner?No 10:19:41 Previous problem with sedation/anesthesia? No ? 10:19:42 Snore? Yes 10:19:44 Sleep apnea? No 10:19:44 Deviated septum? No 10:19:45 Opens mouth fully? Yes 10:19:46 Sticks out tongue? Yes 10:19:49 Airway obstruction? No ? 10:19:51 Dentures? No ? 10:27:18 Mil Hathaway CRNA present and monitoring patient for TIVA. 10:27:23 Vital chart was started 10:27:24 Baseline sample Acquired. 10:27:32 Rhythm: atrial flutter 10:28:37 Patient pain scale 0/10 ?. 10:28:42 IV patent on arrival in right antecubital with 0.9% NaCl at KVO. 10:29:12 Lab Result : BUN 31 mg/dl 10::12 Lab Result : Creatinine 1 mg/dl 10::12 Lab Result : eGFR NONAFRICAN 58 ml/min 10::12 Lab Result : Hemoglobin 9.8 g/dl 10::12 Lab Result : Hematocrit 33.6 % 10:29:15 Lab results completed and on chart. 10:29:17 Alarms reviewed by R. N. 10::17 Sharps counted by scrub and verified by R.N. 10:29:30 Quick Combo opened to sterile field. 10:33:26 Patient Weight : 242.51 lbs 10:33:29 Patient Height : 62.99 inches 10:34:16 Patient allergic to Other allergyCODEINE, SULFA 10:35:37 Oxygen 8 l/min simple mask was administered by Aissatou Jacobson RN; used for procedure; Verbal order read back and verified. 10:35:47 Hurricaine [place] 1 Sprays P.O. was administered by Aissatou Jacobson RN; Per physician; Verbal order read back and verified. 10:35:56 Refer to Anesthesia Notes for Sedation Medications was administered by Aissatou Jacobson RN; ; Verbal order read back and verified. 10:46:05 --------ALL STOP TIME OUT------ 10:46:07 Final Timeout: patient, procedure, and site verified with staff and physician. All members of the team are in agreement. 10:46:10 Fire Safety Assessment: C--Open oxygen or nitrous oxide is being used. 10:46:13 Physical assessment completed. ASA score P 3 - A patient with severe systemic disease as per Antoni Crawford MD. 10:46:16 Sedation plan: TIVA Medication:Propofol 10:47:19 Procedure started. 10:47:27 LOGAN 10:47:30 Yaneth Briceño Cake Cutter Machine present for LOGAN. 10:47:45 LOGAN started. 10:52:07 LOGAN completed. 10:52:10 ------Cardioversion------ 10:52:11 Quick combo pads placed on patients chest and back. 10:52:14 Defibrillator synced and charged to 50 Joules. 10:52:36 Shock delivered. 10:52:38 Patient cardioverted to sinus rhythm . 10:53:09 Procedure ended.(Physican Out) 10:55:04 Fluoroscopy time 00.00 minutes. 10:55:06 Fluoroscopy dose: 0 mGy 10:55:06 Flurop Dose total: 0 10:55:09 Dose Area Product 0 mGy/cm. 10:55:22 Post-procedure physical assessment completed. ASA score P 3 - A patient with severe systemic disease as per Antoni Crawford MD. 10:55:26 Post procedure rhythm: sinus rhythm 10:55:42 Estimated blood loss: 0 ml 10:55:43 Post procedure instruction explained to patient.Patient verbalizes understanding. 10:55:43 Patient needs reinforcement of post procedure teaching. 10:56:53 Procedure and supply charges have been captured, reviewed, submitted and are correct. 10:57:00 LOGAN Findings: LOGAN w/ cardioversion: no left atrial clot noted (proceed with cardioversion) 10:57:01 Operative report dictated upon procedure completion. 10:57:01 See physician's report for complete and final results. 10:57:04 Report given to Med II. 11:00:01 Procedure Complication : No complications 11:00:03 Vital chart was stopped 11:00:08 Patient transfered to Med II with Bed. 11:00:10 Procedure ended. 11:00:10 Full Disclosure recording stopped 11:00:13 End room use (Document Last) 11:00:31 End room use (Document Last) 11:01:05 End room use (Document Last) Device Usage Item Manufacture Quantity Catalog Hospital Part Current Minimal Lot# / Name Number Charge Number Stock [facility]# Code [place] [address] [id number] Combo Signature Audit Hardy Stage Time Signature Unsigned Intra-Procedure 08/11/2020 Ellie Schultz 11:00:31 AM RT(R) Intra-Procedure 08/11/2020 Aissatou Jacobson RN 11:01:06 AM Intra-Procedure 08/11/2020 Antoni Billings 11:01:25 AM Marko [place] [place] [id number] [place] [address]
[~2020-08-05 12:36] MED LIST: CARDIZEM120 MG PO; GLUCOTROL 5 MG T5 MG PO; LANOXIN125 MCG PO; LANTUS SOLOSTAR PE SQ; LIPITOR10 MG PO; METFORMIN HCL500 M1 PO; PIOGLITAZONE15 MG PO; VASOTEC5 MG
[2020-08-05 13:28] LABS: CALC OSMOLALITY 273 mosm/kg (275-300); CALCIUM 8.9 mg/dL (8.5-10.1); CHLORIDE - SERUM 98 mmol/L (98-107); CREATININE - SERUM 0.9 mg/dL (0.6-1.3); POTASSIUM - SERUM 4.8 mmol/L (3.5-5.1); SODIUM 134 mmol/L (136-145); UREA NITROGEN 29 mg/dL (7-18); eGFR NON AFRICAN AMERICAN 66 mL/min (90-120)
[2020-08-05 13:29] LABS: GLUCOSE 99 mg/dL (74-106)
[2020-08-05 13:37] LABS: BASOPHILS 0.4 % (0-2); EOSINOPHILS 1.9 % (0-7); HEMATOCRIT 36.5 % (36.0-48.0); HEMOGLOBIN 10.8 g/dL (12-16); IMMATURE GRANULOCYTES 0.3 % (0-5); LYMPHOCYTES 11.6 % (15-50); MCH 26.6 pg (26.0-34.0); MCHC 29.6 g/dL (31.0-37.0); MCV 89.9 fL (80.0-100.0); MEAN PLATELET VOLUME 8.1 fL (7.4-10.4); MONOCYTES 10.2 % (2-11); NEUTROPHILS 75.6 % (40-80); PLATELET COUNT 382 10x3/uL (130-400); RBC 4.06 10x6/uL (4.00-5.40); RDW 14.8 % (11.5-14.5); WBC 10.2 10x3/uL (4.8-10.8)
[2020-08-05 13:43] LABS: APTT 31.6 SECONDS (22.8-39.4); INR 1.13 (0.85-1.17); PROTIME 14.5 SECONDS (11.6-15.0)
[2020-08-05 13:50] LABS: ALBUMIN 3.2 g/dL (3.4-5.0); ALKALINE PHOSPHATASE 68 U/L (30-120); ALT (SGPT) 33 U/L (10-68); BILIRUBIN - TOTAL 0.34 mg/dL (0.2-1.3); CKMB 2.5 U/L (0.0-3.6); CREATINE KINASE 55 UL (21-215); PRO BNP 802 pg/mL (0-125); PROTEIN - SERUM 7.7 g/dL (6.4-8.2)
[2020-08-05 13:54] LABS: TROPONIN-I 0.185 ng/mL (0.000-0.060)
--- NOTE | 2020-08-05 13:54 | NUR ---
ERP INFORMED OF TROPONIN OF 0.185
--- NOTE | 2020-08-05 16:17 | NUR ---
1630 FABS ON HOLD D/T PT ALREADY EATING SNACK.
--- NOTE | 2020-08-05 16:26 | NUR ---
COVID SWAB COLLECTED AND SENT TO THE LAB
[2020-08-05 17:10] LABS: BACTERIA FEW HPF (NONE SEEN); BILIRUBIN NEGATIVE (NEGATIVE); EPITHELIAL CELLS 0-5 /hpf (0-5); KETONE NEGATIVE (NEGATIVE); NITRITE NEGATIVE (NEGATIVE); UROBILINOGEN NORMAL mg/dL (< 2); WHITE CELLS - URINE 0-5 HPF (0-4)
--- NOTE | 2020-08-05 19:08 | NUR ---
REPORT TO JANETH CUEVAS.
[2020-08-06] VITALS (14 sets, daily range): BP systolic 92–135; BP diastolic 35–81; BMI 42.7
--- NOTE | 2020-08-06 03:10 | NUR ---
CARDIZEM IVPB STOPPED AT 0310, 125 ML INFUSED. NEW BAG STARTED AT THIS ITME
--- NOTE | 2020-08-06 06:35 | NUR ---
CONTACTED TERESA SOSA APN AND INFORMED HER PATIENTS HEART RATE CONTINUES TO STAY AT 140 DESPITE INCREASING CARDIZEM, ORDERED DIGOXIN.
[2020-08-06 07:23] LABS: BASOPHILS 0.4 % (0-2); EOSINOPHILS 1.8 % (0-7); HEMATOCRIT 32.9 % (36.0-48.0); HEMOGLOBIN 9.6 g/dL (12-16); IMMATURE GRANULOCYTES 0.1 % (0-5); LYMPHOCYTES 10.4 % (15-50); MCH 26.2 pg (26.0-34.0); MCHC 29.2 g/dL (31.0-37.0); MCV 89.6 fL (80.0-100.0); MEAN PLATELET VOLUME 8.2 fL (7.4-10.4); MONOCYTES 9.5 % (2-11); NEUTROPHILS 77.8 % (40-80); PLATELET COUNT 323 10x3/uL (130-400); RBC 3.67 10x6/uL (4.00-5.40); RDW 14.9 % (11.5-14.5); WBC 8.5 10x3/uL (4.8-10.8)
[2020-08-06 07:52] LABS: INR 1.16 (0.85-1.17); PROTIME 14.8 SECONDS (11.6-15.0)
[2020-08-06 08:07] LABS: % SATURATION 5 % (15-55); IRON 23 ug/dl (35-150); TOTAL IRON BIND CAPACITY 385 ug/dl (260-445); UNSAT IRON BIND CAPACITY 362 ug/dl (150-375)
--- NOTE | 2020-08-06 08:09 | NUR ---
MEAL TRAY PROVIDED.
[2020-08-06 08:25] LABS: ALBUMIN 2.8 g/dL (3.4-5.0); ALKALINE PHOSPHATASE 56 U/L (30-120); ALT (SGPT) 30 U/L (10-68); BILIRUBIN - TOTAL 0.26 mg/dL (0.2-1.3); C-REACTIVE PROTEIN 0.7 mg/dL (0.0-0.9); CALCIUM 8.2 mg/dL (8.5-10.1); CARBON DIOXIDE 31.5 mmol/L (21.0-32.0); CHLORIDE - SERUM 102 mmol/L (98-107); CHOL - HDL RATIO 2.2 ratio (2.3-4.1); CHOLESTEROL, TOTAL 92 mg/dL (0-200); CKMB 1.7 U/L (0.0-3.6); CREATINE KINASE 38 UL (21-215); FERRITIN 18 ng/mL (3-244); HDL CHOLESTEROL 42 mg/dL (32-96); LDL CHOLESTEROL 40 mg/dL (0-100); PHOSPHOROUS 4.2 mg/dL (2.5-4.9); POTASSIUM - SERUM 5.1 mmol/L (3.5-5.1); PRO BNP 758 pg/mL (0-125); PROTEIN - SERUM 6.2 g/dL (6.4-8.2); SODIUM 138 mmol/L (136-145); THYROID STIMULATING HORMONE 4.16 uIU/mL (0.36-3.74); TRIGLYCERIDE 54 mg/dL (30-200); UREA NITROGEN 31 mg/dL (7-18); eGFR NON AFRICAN AMERICAN 58 mL/min (90-120)
[2020-08-06 08:27] LABS: CALC OSMOLALITY 286 mosm/kg (275-300); GLUCOSE 178 mg/dL (74-106)
[2020-08-06 08:28] LABS: TROPONIN-I 0.192 ng/mL (0.000-0.060)
--- NOTE | 2020-08-06 12:18 | NUR ---
FSBS 223
--- NOTE | 2020-08-06 16:27 | NUR ---
FSBS 217
[2020-08-07] VITALS: BP 120/67
[2020-08-07 04:00] VITALS: BP 118/58
[2020-08-07 07:08] LABS: BASOPHILS 0.2 % (0-2); EOSINOPHILS 1.9 % (0-7); HEMATOCRIT 34.7 % (36.0-48.0); HEMOGLOBIN 10.1 g/dL (12-16); IMMATURE GRANULOCYTES 0.2 % (0-5); LYMPHOCYTES 8.6 % (15-50); MCH 26.2 pg (26.0-34.0); MCHC 29.1 g/dL (31.0-37.0); MCV 89.9 fL (80.0-100.0); MEAN PLATELET VOLUME 8.1 fL (7.4-10.4); MONOCYTES 9.6 % (2-11); NEUTROPHILS 79.5 % (40-80); PLATELET COUNT 345 10x3/uL (130-400); RBC 3.86 10x6/uL (4.00-5.40); RDW 14.9 % (11.5-14.5); WBC 9.6 10x3/uL (4.8-10.8)
[2020-08-07 07:50] LABS: ALBUMIN 2.9 g/dL (3.4-5.0); ANION GAP 8.4 mmol/L (8-16); BILIRUBIN - TOTAL 0.29 mg/dL (0.2-1.3); CALCIUM 8.7 mg/dL (8.5-10.1); CARBON DIOXIDE 32.2 mmol/L (21.0-32.0); CREATININE - SERUM 0.9 mg/dL (0.6-1.3); POTASSIUM - SERUM 4.6 mmol/L (3.5-5.1); PROTEIN - SERUM 7.2 g/dL (6.4-8.2)
[2020-08-07 08:07] VITALS: BP 130/68
[2020-08-07 11:16] VITALS: BP 118/68
[2020-08-07 15:12] VITALS: BP 122/67
[2020-08-07 20:22] VITALS: BP 130/64
[2020-08-08 00:32] VITALS: BP 134/62
[2020-08-08 04:30] VITALS: BP 116/60
[2020-08-08 05:55] LABS: ANION GAP 10.1 mmol/L (8-16); CALCIUM 8.2 mg/dL (8.5-10.1); CARBON DIOXIDE 29.6 mmol/L (21.0-32.0); CREATININE - SERUM 0.9 mg/dL (0.6-1.3); MAGNESIUM - SERUM 1.9 mg/dL (1.8-2.4); PHOSPHOROUS 3.3 mg/dL (2.5-4.9); POTASSIUM - SERUM 4.7 mmol/L (3.5-5.1)
[2020-08-08 06:27] LABS: BASOPHILS 0.3 % (0-2); EOSINOPHILS 1.5 % (0-7); HEMATOCRIT 34.1 % (36.0-48.0); HEMOGLOBIN 10.5 g/dL (12-16); IMMATURE GRANULOCYTES 0.5 % (0-5); LYMPHOCYTES 9.7 % (15-50); MCH 26.9 pg (26.0-34.0); MCHC 30.8 g/dL (31.0-37.0); MEAN PLATELET VOLUME 8.7 fL (7.4-10.4); MONOCYTES 10.8 % (2-11); NEUTROPHILS 77.2 % (40-80); PLATELET COUNT 281 10x3/uL (130-400); RDW 14.8 % (11.5-14.5); WBC 10.2 10x3/uL (4.8-10.8)
[2020-08-08 06:34] LABS: MCV 87.4 fL (80.0-100.0)
[2020-08-08 08:38] VITALS: BP 126/66
[2020-08-08 13:00] VITALS: BP 122/57
[2020-08-08 17:18] VITALS: BP 134/81
[2020-08-08 20:00] VITALS: BP 128/63
--- NOTE | 2020-08-08 20:30 | NUR ---
PT IN BED, AAO X 3, RESP EVEN AND UNLABORED, NO DISTRESS NOTED, CL IN REACH,SR UP X 2.
--- NOTE | 2020-08-09 03:54 | NUR ---
I have reviewed this patient and I concur with the Shift Assessment completed by the Licensed Practical Nurse today this shift.
[2020-08-09 04:00] VITALS: BP 123/66
[2020-08-09 06:59] LABS: BASOPHILS 0.3 % (0-2); HEMATOCRIT 33.2 % (36.0-48.0); HEMOGLOBIN 9.7 g/dL (12-16); IMMATURE GRANULOCYTES 0.2 % (0-5); LYMPHOCYTES 7.3 % (15-50); MCH 26.1 pg (26.0-34.0); MCHC 29.2 g/dL (31.0-37.0); MCV 89.2 fL (80.0-100.0); MEAN PLATELET VOLUME 8.2 fL (7.4-10.4); MONOCYTES 10.9 % (2-11); NEUTROPHILS 80.3 % (40-80); PLATELET COUNT 324 10x3/uL (130-400); RBC 3.72 10x6/uL (4.00-5.40); RDW 14.8 % (11.5-14.5); WBC 10.1 10x3/uL (4.8-10.8)
--- NOTE | 2020-08-09 07:00 | NUR ---
RECEIVED REPORT. ASSUMED CARE OF PATIENT. CALL LIGHT WITHIN REACH. PATIENT SITTING TO SIDE OF BED. PATIENT DENIES NEEDS. PITTING EDEMA NOTED TO BILATERAL LOWER EXTREMITIES. WHITE BOARD UPDATED, BEDSIDE SHIFT REPORT COMPLETE. NO DISTRESS.
[2020-08-09 07:26] LABS: CALC OSMOLALITY 284 mosm/kg (275-300); CALCIUM 8.5 mg/dL (8.5-10.1); CARBON DIOXIDE 31.4 mmol/L (21.0-32.0); CHLORIDE - SERUM 100 mmol/L (98-107); CREATININE - SERUM 0.7 mg/dL (0.6-1.3); GLUCOSE 254 mg/dL (74-106); MAGNESIUM - SERUM 1.9 mg/dL (1.8-2.4); PHOSPHOROUS 3.2 mg/dL (2.5-4.9); POTASSIUM - SERUM 4.1 mmol/L (3.5-5.1); SODIUM 137 mmol/L (136-145); UREA NITROGEN 19 mg/dL (7-18); eGFR NON AFRICAN AMERICAN 88 mL/min (90-120)
[2020-08-09 08:24] VITALS: BP 126/69
--- NOTE | 2020-08-09 11:33 | NUR ---
fsbs 349. 8 units humulin administered per sliding scale.
[2020-08-09 12:10] VITALS: BP 113/74
--- NOTE | 2020-08-09 17:00 | NUR ---
RECHECKED PATIENT BLOOD SUGAR AFTER 1ST RESULT OBTAINED BY CHARGE NURSE WAS 434. WHEN RECHECKED FSBS 334. 8 UNITS HUMULIN ADMINISTERED PER SLIDING SCALE FOR FSBS 334.
--- NOTE | 2020-08-09 19:35 | NUR ---
RECEIVED REPORT, WILL ASSUME CARE OF PT, ASSISTED PT TO RESTROOM, AND BACK TO BED, 02-4L, YH-65-ELV-AMIODARONE-16.7, BED IS LOW, SRX2, CALL LIGHT IN REACH, WILL CONTINUE PLAN OF CARE
[2020-08-09 21:14] VITALS: BP 136/75
[2020-08-10 00:16] VITALS: BP 118/72
--- NOTE | 2020-08-10 03:36 | NUR ---
I have reviewed this patient and I concur with the Shift Assessment completed by the Licensed Practical Nurse today this shift.
[2020-08-10 04:00] VITALS: BP 123/60
[2020-08-10 04:53] LABS: BASOPHILS 0.2 % (0-2); EOSINOPHILS 1.2 % (0-7); HEMATOCRIT 32.8 % (36.0-48.0); HEMOGLOBIN 9.7 g/dL (12-16); IMMATURE GRANULOCYTES 0.3 % (0-5); LYMPHOCYTES 11.5 % (15-50); MCHC 29.6 g/dL (31.0-37.0); MCV 87.9 fL (80.0-100.0); MEAN PLATELET VOLUME 8.3 fL (7.4-10.4); MONOCYTES 10.2 % (2-11); NEUTROPHILS 76.6 % (40-80); PLATELET COUNT 327 10x3/uL (130-400); RBC 3.73 10x6/uL (4.00-5.40); RDW 14.6 % (11.5-14.5); WBC 9.9 10x3/uL (4.8-10.8)
[2020-08-10 05:01] LABS: CALCIUM 8.7 mg/dL (8.5-10.1); CARBON DIOXIDE 34.8 mmol/L (21.0-32.0); MAGNESIUM - SERUM 1.8 mg/dL (1.8-2.4); PHOSPHOROUS 3.4 mg/dL (2.5-4.9); POTASSIUM - SERUM 3.8 mmol/L (3.5-5.1)
--- NOTE | 2020-08-10 07:00 | NUR ---
RECEIVED REPORT. ASSUMED CARE OF PATIENT. CALL LIGHT WITHIN REACH. PATIENT SITTING TO SIDE OF BED. INCENTIVE SPIROMETRY PROVIDED AND INSTRUCTIONS PROVIDED WITH RETURN DEMONSTRATION FROM PATIENT. BEDSIDE SHIFT REPORT COMPLETE, WHITE BOARD UPDATED. NO DISTRESS.
[2020-08-10 08:13] VITALS: BP 114/66
--- NOTE | 2020-08-10 11:14 | NUR ---
FSBS 352. 10 UNITS HUMULIN ADMINISTERED PER SLIDING SCALE. NO DISTRESS.
[2020-08-10 11:55] VITALS: BP 117/69
[2020-08-10 16:21] VITALS: BP 127/75
--- NOTE | 2020-08-10 16:26 | NUR ---
FSBS 323. 8 UNITS HUMULIN INSULIN ADMINISTERED PER SLIDING SCALE.
[2020-08-10 18:56] VITALS: BP 127/75
--- NOTE | 2020-08-10 19:30 | NUR ---
RECEIVED REPORT, WILL ASSUME CARE OF PT, 02-4L, IV-22G.-R.THUMB-AMIODARONE 16.7, [id number], WANDY BANDAGES TO BOTH LOWER LEGS, ASSIST TO RESTROOM AND BACK TO BED, DENIES ANY NEEDS, BED IS LOW, SRX2, CALL LIGHT IN REACH, WILL CONTINUE PLAN OF CARE
[2020-08-11] VITALS (11 sets, daily range): BP systolic 111–136; BP diastolic 60–86
[2020-08-11 06:51] LABS: BASOPHILS 0.1 % (0-2); EOSINOPHILS 1.4 % (0-7); HEMATOCRIT 33.6 % (36.0-48.0); HEMOGLOBIN 9.8 g/dL (12-16); IMMATURE GRANULOCYTES 0.3 % (0-5); LYMPHOCYTES 9.2 % (15-50); MCH 25.9 pg (26.0-34.0); MCHC 29.2 g/dL (31.0-37.0); MCV 88.7 fL (80.0-100.0); MEAN PLATELET VOLUME 8.5 fL (7.4-10.4); MONOCYTES 10.3 % (2-11); NEUTROPHILS 78.7 % (40-80); PLATELET COUNT 367 10x3/uL (130-400); RBC 3.79 10x6/uL (4.00-5.40); RDW 14.9 % (11.5-14.5); WBC 9.4 10x3/uL (4.8-10.8)
--- NOTE | 2020-08-11 07:00 | NUR ---
PT LYING IN BED. EYES CLOSED. CHEST RISING AND FALLING. O2 AT 3L VIA HIGH FLOW NC. RT HAND IV INFUSING AMIODARONE. 128 FLUTTER ON TELE. BED LOW. CL IN REACH. WILL CONTINUE TO MONITOR.
[2020-08-11 07:12] LABS: ANION GAP 7.3 mmol/L (8-16); CARBON DIOXIDE 34.8 mmol/L (21.0-32.0); MAGNESIUM - SERUM 1.8 mg/dL (1.8-2.4); PHOSPHOROUS 4.1 mg/dL (2.5-4.9); POTASSIUM - SERUM 4.1 mmol/L (3.5-5.1)
--- NOTE | 2020-08-11 09:42 | NUR ---
CONSENTS FOR CARDIOVERSION SIGNED. HIBACLENS BATH DONE BY ADVERTISING CLERK.
--- NOTE | 2020-08-11 10:13 | NUR ---
PT TAKEN FOR CARDIOVERSION VIA BED.
--- NOTE | 2020-08-11 11:04 | NUR ---
LEIGH FROM THE BUSINESS SERVICES ANALYST CALLED AND STATED ST. ALEMAN DID X1 SHOCK AT 50 AND PT IS NOW IN SINUS RHYTHM. PT WENT SINUS GEORGINA FOR A MINUTE BUT WENT BACK TO SINUS RHYTHM. SHE STATES PT TO BE NPO FOR 1 HOUR. PT RECEIVED PROPOFAL. SHE ALSO STATES DR. PA STATES TO D/C DIGOXIN AND AMIODARONE DRIP AND START AMIODARONE 200MG BID. I VERBALIZED UNDERSTANIDNG.
--- NOTE | 2020-08-11 11:15 | NUR ---
PT ARRIVED BACK IN ROOM FROM CARDIOVERSION. ALERT AND ORIENTED. VS STBALE. PT STATES SHE HAS NO FURTHER NEEDS AT THIS TIME. SINUS RHYTHM ON TELE. BED LOW. CL IN REACH. WILL CONTINUE TO MONITOR.
--- NOTE | 2020-08-11 17:08 | NUR ---
RIGHT HAND IV LEAKING DC'D WITH CATH INTACT.
--- NOTE | 2020-08-11 17:53 | NUR ---
LEFT FA 20G IV INSERTED.
--- NOTE | 2020-08-11 19:36 | NUR ---
RECEIVED REPORT, WILL ASSUME CARE OF PT, ASSIST PT TO REPOSTION, DENIES ANY OTHER NEEDS, BED IS LOW, SRX2, CALL LIGHT IN REACH, WILL CONTINUE PLAN OF CARE
[2020-08-12 02:12] VITALS: BP 122/65
--- NOTE | 2020-08-12 04:42 | NUR ---
PATIENT FELL IN BATHROOM ATTEMPTING TO RETURN TO BED. NO INJURIES NOTED. PATIENT VERBALIZED UNDERSTANTING THAT SHE IS NOT TO GET OUT OF BED WITHOUT ASSISTANCE. PAGE MARLON IZAGUIRRE APN. RECEIVED RETURN CALL. NO NEW ORDERS GIVEN.
--- NOTE | 2020-08-12 05:10 | NUR ---
SPOKE WITH BROWN (DAUGHTER) THAT PT FELL
[2020-08-12 06:14] VITALS: BP 130/51
[2020-08-12 07:00] VITALS: BP 119/55
--- NOTE | 2020-08-12 08:22 | OP ---
PATIENT NAME: BETSY VU MEDICAL RECORD: [id number] :52 LOCATION:[facility] [address] ADMISSION DATE:08/05/20 SURGEON: DUANE CHEN MD DATE OF OPERATION: 08/11/2020 PROCEDURE: Cardioversion. DESCRIPTION OF PROCEDURE: After TIVA via anesthesia, a single synchronized shock was successful in restoring atrial flutter to normal sinus rhythm. IMPRESSION: Successful cardioversion on Betsy Vu. During the procedure, the patient was monitored continuously with pulse oximetry, telemetry, and noninvasive blood pressure monitoring. NTS:[id number] Voice Confirmation ID: [id number] DOCUMENT ID: [id number] DUANE CHEN MD at 0822 CC: [id number] DICTATION DATE: 08/11/20 1101 RENTAL SALESPERSON: 08/11/202019 ADM IN [facility] [address] [place] [address]
--- NOTE | 2020-08-12 08:22 | TEE ---
PATIENT:MILES VU MEDICAL RECORD: [id number] LOCATION:D. D.212 AGE OF PATIENT: 69 ADMISSION DATE: 08/05/20 SEX: F REFERRING PHYSICIAN: INTERPRETING PHYSICIAN: DUANE CHEN MD TRANSESOPHAGEAL ECHOCARDIOGRAM Date: 08/11/20 LOGAN CHARGE Y INDICATIONS: R/O CLOT FOR CARDIOVERSION PREMEDICATIONS: PATIENT'S RESPONSE PROCEDURE DOPPLER MEASUREMENTS: LVIT LA PA RA LVOT RVOT Asc. Ao AV Gradient Peak AV Mean AV Area MV Gradient Peak MV Mean MV Area INTERPRETATION: Doppler: 2-D: COLOR FLOW DOPPLER NORMAL SALINE STUDY: MISCELLANOUS: DIAGNOSIS: PLAN: Consumer Safety Inspector:3 Dr. Valdivia Sewing Machine Mechanic: David QUIJANO COMMENTS: PACS DATE OF SERVICE: 08/11/2020 This is a Transesophageal Note. DESCRIPTION OF PROCEDURE: After general sedation via TIVA via anesthesia, a transesophageal Omniplane probe was placed in the distal esophagus and proximal stomach without difficulty. FINDINGS: Probable LVH. LV internal dimension is normal. Wall motion is TRANSESOPHAGEAL ECHOCARDIOGRAM REPORT [id number] MILES VU normal. EF is greater than or equal to 55%. Aortic valve is tricuspid with good valve excursion. No significant AI with color flow imaging. Left atrium appears normal. Left atrial appendage is well visualized with good flutter contractility via Doppler interrogation and no evidence of thrombus. Mitral valve appears normal with mild MR. RV internal dimensions appear normal. RA appears to be mildly dilated. There is moderate TR with color flow imaging. At the end of the procedure, transesophageal Omniplane was turned posterior and this showed minimal atherosclerotic debris in the descending aorta. TRANSINT:[id number] Voice Confirmation ID: [id number] DOCUMENT ID: [id number] at 0822 CC: [id number] DICTATION DATE: 08/11/20 1101 SHIP CONSTRUCTION TEACHER: 08/12/20 0110 ADM IN [place] [address] [place] [address]
[2020-08-12 10:37] LABS: BASOPHILS 0.1 % (0-2); EOSINOPHILS 0.6 % (0-7); HEMATOCRIT 33.5 % (36.0-48.0); HEMOGLOBIN 9.9 g/dL (12-16); IMMATURE GRANULOCYTES 0.2 % (0-5); LYMPHOCYTES 3.2 % (15-50); MCH 26.2 pg (26.0-34.0); MCHC 29.6 g/dL (31.0-37.0); MCV 88.6 fL (80.0-100.0); MEAN PLATELET VOLUME 8.4 fL (7.4-10.4); MONOCYTES 8.1 % (2-11); NEUTROPHILS 87.8 % (40-80); PLATELET COUNT 360 10x3/uL (130-400); RBC 3.78 10x6/uL (4.00-5.40); RDW 14.8 % (11.5-14.5)
[2020-08-12 10:39] VITALS: Ht 160 cm; Wt 109.3 kg
[2020-08-12 10:39] LABS: WBC 13.9 10x3/uL (4.8-10.8)
[2020-08-12 10:45] LABS: ANION GAP 7.5 mmol/L (8-16); CALCIUM 8.9 mg/dL (8.5-10.1); CARBON DIOXIDE 35.8 mmol/L (21.0-32.0); CREATININE - SERUM 1.1 mg/dL (0.6-1.3); MAGNESIUM - SERUM 1.8 mg/dL (1.8-2.4); PHOSPHOROUS 4.6 mg/dL (2.5-4.9); POTASSIUM - SERUM 4.3 mmol/L (3.5-5.1)
[2020-08-12 11:00] VITALS: BP 131/57
--- NOTE | 2020-08-12 12:45 | NUR ---
Rehab Note- Acute Inpatient Rehab prescreen order received. The patient has E[employer] insurance and will require a PreAuth, OT & PT Evals have been ordered. Will initiate PreAUth. Will follow at this time. Thank you for this referral! Esther Thurston RN Clinical Liaison, [facility] Rehab
--- NOTE | 2020-08-12 14:46 | NUR ---
Wound Care consult for weeping wounds on bilateral lower extremities. Pt states unna boots were applied on Tuesday. This was confirmed in physician progress note. Both wraps are intact and pt states they are comfortable. She voices no complaint of pain. The fit was checked using 2 fingers at base and at top of boots. Plan is to remove them on Tuesday and reapply as ordered. Wound care continues to monitor.
[2020-08-12 15:00] VITALS: BP 135/81
--- NOTE | 2020-08-12 15:46 | NUR ---
Rehab Note- PreAuth initiated and clinicals faxed, pending Ref #[id number]. Will await determination. Thank you for this referral! Esther Thurston RN Clinical Liaison, [facility] Rehab
--- NOTE | 2020-08-12 19:16 | NUR ---
REPORT RECIEVED AND ROUNDING COMPLETE. PATIENT LAYING IN BED IN LOW FOWLERS, WEARING NASAL CANNULA (HIGH FLOW) WITH O2 AT 7L. PATIENT'S BREATHING IS LABORED, SHE STATES THIS HAS BECOME HER NORMAL. NO DISTRESS NOTED. CALL LIGHT WITHIN REACH. ASSISTED PATIENT TO LAY ON HER RIGHT SIDE. LEFT AC PIV THAT IS SALINE LOCKED. CALL LIGHT WITHIN REACH AND BED IN LOWEST LOCKED POSITION. DAUGHTER AT BEDSIDE.
[2020-08-12 19:58] VITALS: BP 137/68
[2020-08-13] VITALS: BP 123/50
[2020-08-13 04:00] VITALS: BP 128/78
[2020-08-13 07:26] LABS: ANION GAP 6.7 mmol/L (8-16); CALCIUM 9.6 mg/dL (8.5-10.1); CARBON DIOXIDE 37.4 mmol/L (21.0-32.0); POTASSIUM - SERUM 4.1 mmol/L (3.5-5.1)
--- NOTE | 2020-08-13 07:30 | NUR ---
PT RECEIVED AND SITTING ON SIDE OF BED WAITING FOR BREAKFAST. OXYGEN AT 7LHFNC. SEEMS SOB RESTING OVER TABLE AT PRESENT.
[2020-08-13 08:59] LABS: BASOPHILS 0.2 % (0-2); EOSINOPHILS 1.7 % (0-7); HEMATOCRIT 35.1 % (36.0-48.0); HEMOGLOBIN 10.2 g/dL (12-16); IMMATURE GRANULOCYTES 0.2 % (0-5); LYMPHOCYTES 7.4 % (15-50); MCH 26.2 pg (26.0-34.0); MCHC 29.1 g/dL (31.0-37.0); MCV 90.2 fL (80.0-100.0); MEAN PLATELET VOLUME 8.4 fL (7.4-10.4); MONOCYTES 9.1 % (2-11); NEUTROPHILS 81.4 % (40-80); PLATELET COUNT 398 10x3/uL (130-400); RBC 3.89 10x6/uL (4.00-5.40); RDW 14.9 % (11.5-14.5); WBC 12.4 10x3/uL (4.8-10.8)
[2020-08-13 10:52] VITALS: BP 118/58
[2020-08-13] MEDS ORDERED: AMIODARONE HCL200 MG PO (12:56)
[2020-08-13] MEDS ORDERED: TOPROL XL50 MG PO (12:56)
--- NOTE | 2020-08-13 13:27 | NUR ---
PT BEING WEANED ON HER OXYGEN. DROPPED TO 6 LITERS WITH PULSE OX AT 98%. RT ALSO CAME AND DROPPED MORE. NOW ON 4 LITERS AT 94%.
[2020-08-13] MEDS ORDERED: LASIX40 MG PO (14:01)
[2020-08-13] MEDS ORDERED: HUMULIN R100 UNIT/1 SC (14:07)
--- NOTE | 2020-08-13 14:39 | NUR ---
OT NOTE: PT REQUIRED CUES FOR INCREASED PARTICIPATION. PT REQUIRED MAX A FOR LE MANAGEMENT FOR SUPIN TO SIT AT EOB. PT REQUIRED SBA FOR EOB SITTING. PT REQUIRED TOTAL A FOR FIDEL/DOFF SOCKS. PT COMPLETED ADL MOB WITH RW WITH MIN/CGA. [phone] THANK YOU,XENA ARMSTRONG
[2020-08-13 14:54] VITALS: BP 150/62
--- NOTE | 2020-08-13 16:21 | NUR ---
REPORT CALLED TO VERONICA FOWLER ON REHAB. PT GOING TO ROOM 1116.
--- NOTE | 2020-08-13 17:33 | NUR ---
PT TRANSFERRED TO REHAB ROOM 1116. DINNER TRAY TAKEN WITH. SENT WITH TELEMETRY SINCE FRESH CARDIOVERSION. FAMILY WITH PT ON TRANSFER.
== END 2020-08-13 17:35 | DRG 291 ==
LOC: D.ER 12:36 → D.EDHOLD 16:42 → D.M2 16:42
PROVIDERS: Family Medicine; ADMIT Family Medicine; ATTEND Family Medicine
DX: I11.0 Hypertensive heart disease with heart failure (principal); I50.21 Acute systolic (congestive) heart failure; I48.92 Unspecified atrial flutter; E87.1 Hypo-osmolality and hyponatremia; Z68.41 Body mass index [BMI] 40.0-44.9, adult; S81.802A Unspecified open wound, left lower leg, initial encounter; S81.801A Unspecified open wound, right lower leg, initial encounter; X58.XXXA Exposure to other specified factors, initial encounter; D64.9 Anemia, unspecified; E66.01 Morbid (severe) obesity due to excess calories; E11.65 Type 2 diabetes mellitus with hyperglycemia

== ENCOUNTER 2020-08-13 16:28 | Inpatient (IN) | payer MEDICARE ==
[~2020-08-13] VITALS: Ht 160 cm; Wt 108.2 kg
[~2020-08-13 16:28] MED LIST changes: +AMIODARONE HCL200 MG PO; +HUMULIN R100 UNIT/1 SC; +LASIX40 MG PO; +TOPROL XL50 MG PO
--- NOTE | 2020-08-13 17:24 | NUR ---
RECIEVED FROM MED-2/WC'PLACED ON O2@4L/NC;ORIENTED TO ROOM AND SURROUNDINGS.
--- NOTE | 2020-08-13 19:15 | NUR ---
RECEIVED PT SITTING UP IN W/C. ALERT AND ORIENTED X4. VS STABLE. 02 AT 4L VIA HF NC. TELEMETRY 84 SR PER DRY PAN FEEDER. BILATERAL LOWER LOBES CRACKLES. ENCOURAGED PT TO COUGH, STRONG EFFORT NON PRODUCTIVE COUGH. NO CHANGE IN LOWER LOBE AFTER COUGH. +4 EDEMA STARTING WAIST DOWN TO BLE, SKIN TIGHT. BLE UNNA BOOTS INTACT. 2 FINGER CHECK AT TOP AND BOTTOM OF UNNA BOOTS. PER ORDER UNNA BOOTS ARE TO BE CHANGED ON TUESDAY. SMALL AMOUNT OF DRAINAGE NOTED ON UNNA BOOT DRESSINGS. BUE BRUISING NOTED. LEFT FOREARM POSTERIOR SIDE REDDENED HARD AREA APPEARS TO BE FROM INFILTRATED IV. LEFT UPPER ARM IV NOTED WITH REDNESS, HARD, AND TENDER. UPON FLUSHING INFILTRATION NOTED. DC IV WITH CATH TIP INTACT. PRESSURE DRESSING APPLIED. BILATERAL BUTTOCKS REDDENED BLANCHABLE AREAS, SCRATCH ECHAVARRIA FROM PT SCRATCHING. NO OPEN AREAS NOTED. EXPLAINED TO PT AND PT DAUGHTER IN DEPTH ABOUT REHAB PROGRAM, PARTICIPATION, AND WHAT TO EXPECT. ANSWERED QUESTIONS/CONCERNS THEY HAD ABOUT REHAB AND VISITATION. NO OTHER CONCERNS OR NEEDS VOICED. PT DENIES ANY PAIN. CALL LIGHT WITHIN REACH. FALL PRECAUTIONS IN PLACE. CPOC
[2020-08-13 19:56] VITALS: BP 139/63
--- NOTE | 2020-08-13 21:30 | NUR ---
CLEANSED OPEN SORE ON LEFT FOREARM WITH NS, PAT DRY 4X4, COVERED WITH 2X2 BORDER GAUZE. DATE, TIMED, INITALED. PT TOLERATED WELL. NO OTHER NEEDS VOICED.
[2020-08-13 23:50] VITALS: BP 125/69; BMI 42.9
--- NOTE | 2020-08-14 03:22 | NUR ---
PT LYING IN BED ON RIGHT SIDE EYES CLOSED RESTING. RR EVEN AND UNLABORED. CONTINUES ON 4L VIA HF NC. WILL CONTINUE TO MONITOR
--- NOTE | 2020-08-14 04:05 | NUR ---
ASSISTED PT TO RESTROOM AND BACK TO BED WITH MOD ASSIST. SOB WITH EXERTION. CONTINUES ON 4L VIA HF NC. O2 SAT 94%. CALL LIGHT WITHIN REACH. FALL PRECAUTIONS IN PLACE. WILL CONTINUE TO MONITOR
--- NOTE | 2020-08-14 06:02 | NUR ---
PT LYING IN BED ON LEFT SIDE EYES CLOSED RESTING. EASILY AROUSED WITH STIMULI. FSBS 219. WT 250.0 STANDING. DENIES ANY PAIN. TOILETING OFFERED. PT DENIES NEED. CALL LIGHT AND WATER WITHIN REACH. FALL PRECAUTIONS IN PLACE. CPOC
[2020-08-14 07:12] LABS: BASOPHILS 0.2 % (0-2); EOSINOPHILS 1.5 % (0-7); HEMATOCRIT 33.8 % (36.0-48.0); HEMOGLOBIN 9.7 g/dL (12-16); IMMATURE GRANULOCYTES 0.4 % (0-5); LYMPHOCYTES 6.3 % (15-50); MCH 25.6 pg (26.0-34.0); MCHC 28.7 g/dL (31.0-37.0); MCV 89.2 fL (80.0-100.0); MEAN PLATELET VOLUME 8.3 fL (7.4-10.4); MONOCYTES 8.3 % (2-11); NEUTROPHILS 83.3 % (40-80); PLATELET COUNT 365 10x3/uL (130-400); RBC 3.79 10x6/uL (4.00-5.40); RDW 14.7 % (11.5-14.5); WBC 9.7 10x3/uL (4.8-10.8)
[2020-08-14 07:13] LABS: ANION GAP 5.5 mmol/L (8-16); CALCIUM 9.2 mg/dL (8.5-10.1); CARBON DIOXIDE 38.8 mmol/L (21.0-32.0); CREATININE - SERUM 0.9 mg/dL (0.6-1.3); POTASSIUM - SERUM 4.3 mmol/L (3.5-5.1)
[2020-08-14 07:45] VITALS: BP 128/59
--- NOTE | 2020-08-14 08:00 | NUR ---
RESTING QUIETLY IN BED. OXYGEN VIA HIGH FLOW NC IN PLACE. DENIES INCREASED SOB AT REST. DENIES PAIN. RODRIGO BOOTS TO BLE NOTED.SIDE RAILS UP X2. BED IN LOWEST POSITION. CALL LIGHT IN REACH.
--- NOTE | 2020-08-14 09:42 | NUR ---
PATIENT ADMITTED TO REHAB FROM ACUTE FLOOR. HER PCP IS DR. BRADSHAW. DISCHARGE PLANS ARE FOR PATIENT TO RETURN TO HER HOME. WILL CONTINUE TO FOLLOW WITH PATIENT.
[2020-08-14 14:15] VITALS: Ht 160 cm; Wt 108.2 kg
--- NOTE | 2020-08-14 15:57 | NUR ---
LAYING IN BED RESTING QUIETLY. OXYGEN IN PLACE VIA HIGH FLOW NC. NO S/S DISTRESS. SIDE RAILS UP X2. BED IN LOWEST POSITION. CALL LIGHT IN REACH.
[2020-08-14 19:25] VITALS: BP 137/72
[2020-08-14 19:39] VITALS: BP 116/53
--- NOTE | 2020-08-14 19:41 | NUR ---
AWAKE AND ALERT. SITTING IN WHEELCHAIR HAVING JUST FINISHED MEAL. TRAY REMOVED. RESPIRATIONS SLIGHTLY LABORED AT REST. O2/4L HF ON. DAUGHTER AT BEDSIDE. NO ACUTE DISTRESS NOTED.
--- NOTE | 2020-08-15 00:04 | NUR ---
HAS NOT SLEPT YET. STATES SHE IS NOT COMFORTABLE. REPSOITIONED FOR COMFORT. O2/4L ON PER NASAL CANNULA. CALL LIGHT IN REACH.
--- NOTE | 2020-08-15 01:31 | NUR ---
CALLED PER PATIENT TO BE REPOSITINED. NOTED SHORTNESS OF BREATH AT REST. AFTER REPOSITIONNIG HER SHE STATED HER BACK WAS SPASMING. HER HEAD OF BED WAS RAISED AND HER O2 SATURATION WAS 85% ON 4L HIGH FLOW OXYGEN. RESPIRATORY THERAPIST WAS CALLED TO EVALUATE PATIENT. SHE ASSESSED PATIENT AND INCREASED HER OXYGEN TO 7L PER HIGH FLOW AND ADDED A WATER BOTTLE TO OXYGEN UNIT. SATURATION INCREASED TO 93% IMMEDIATELY. BLOOD SUGAR RECHECKED PER PAITENT REQUEST. RESULTS 139. SKIN WARM AND DRY. OXYGEN SATURATION INCREASED TO 97% AFTER 10 MINUTES. HEAD OF BED RAISED MORE PER PATIENT REQUEST. OXYGEN DECREASED TO 6L AND WILL CONTINUE TO MONITOR CLOSELY.
--- NOTE | 2020-08-15 02:34 | NUR ---
RESTING IN BED WITH EYES CLOSED AND RESPIRAITONS UNLABORED. HEAD OF BED ELEVATED 45 DEGREES. O2 SATURATION 98% ON O2/6L HF. OXYGEN DECREASED TO 5L PER HIGH FLOW WILL CONTINUE TO MONITOR.
--- NOTE | 2020-08-15 03:39 | NUR ---
RESTING QUIETLY NOW. RESPIRATIONS UNLABORED. O2/5L ON PER HIGH FLOW.
--- NOTE | 2020-08-15 06:03 | NUR ---
DAILY WEIGHT DONE AND RECORDED. TOLERATED FAIR BUT WITH SOME SHORTNESS OF BREATH. SINUS RHYTHM 77 ON TELEMETRY. O2 SATURATION 97% ON O2/5L HIGH FLOW
[2020-08-15 07:56] VITALS: BP 115/65
--- NOTE | 2020-08-15 08:00 | NUR ---
LAYING IN BED BED RESTING QUIETLY. OXYGEN IN PLACE OF 4L NC HIGH FLOW. UNNA BOOTS TO BLE FROM KNEES TO TOES. BED IN LOWEST POSITION, SIDE RAILS UP X2. CALL LIGHT IN REACH
[2020-08-15 08:49] LABS: ANION GAP 4.7 mmol/L (8-16); CALCIUM 9.1 mg/dL (8.5-10.1); CARBON DIOXIDE 38.4 mmol/L (21.0-32.0); POTASSIUM - SERUM 4.1 mmol/L (3.5-5.1)
[2020-08-15 08:54] LABS: BASOPHILS 0.1 % (0-2); HEMATOCRIT 32.7 % (36.0-48.0); HEMOGLOBIN 9.3 g/dL (12-16); IMMATURE GRANULOCYTES 0.1 % (0-5); LYMPHOCYTES 9.4 % (15-50); MCH 25.3 pg (26.0-34.0); MCHC 28.4 g/dL (31.0-37.0); MCV 88.9 fL (80.0-100.0); MEAN PLATELET VOLUME 8.3 fL (7.4-10.4); MONOCYTES 9.8 % (2-11); NEUTROPHILS 78.6 % (40-80); PLATELET COUNT 375 10x3/uL (130-400); RBC 3.68 10x6/uL (4.00-5.40); RDW 14.7 % (11.5-14.5); WBC 8.3 10x3/uL (4.8-10.8)
--- NOTE | 2020-08-15 12:59 | NUR ---
SITTING ON SIDE OF BED FOR LUNCH. IS SLOW MOVING FOR EVERY TALK. HAS TO HAVE BLE MOVED TO SIDE OF BED WHEN TRANSFERING.
--- NOTE | 2020-08-15 16:30 | NUR ---
ROXI BOJORQUEZ BOOTS CHANGED BY NURSE PER SALVADOR MUNOZ, FLOTATION OPERATOR NURSE. FEW SCATTERED SCABS ON LEGS. NO ACTIVE WEEPING NOTED. SHE STATES SHE CAN'T LIFT HER LEGS UP OFF BED AT ALL AND NEEDS ASST. SHE STILL HAS 3-4+ EDEMA TO BLE.
--- NOTE | 2020-08-15 18:50 | NUR ---
RECEIVED PT SITTING UP IN BED. ALERT AND ORIENTED X4. DENIES ANY NEEDS OR PAIN. CONTINUES ON 6L VIA HF NC. VS STABLE. BLE UNNA BOOTS INTACT. CHANGED TODAY BY WOUND CARE NURSE. BLE +4 EDEMA. NO ACUTE DISTRESS NOTED. CALL LIGHT AND WATER WITHIN REACH. FALL PRECAUTIONS IN PLACE. CPOC
[2020-08-15 20:22] VITALS: BP 129/64
--- NOTE | 2020-08-15 23:10 | NUR ---
PT CALLED REQUESTING NURSE. UPON ENTRY TO PT ROOM NOTICED PT SWEATING AND ANXIOUS, ROOM WAS WARM. TURNED AC ON AND CHECKED PT FSBS 114. PT REQUESTED VANILLA PUDDING. PROVIDED SNACK AND COOL WASHCLOTH. O2 SAT 94% 5L VIA HF NC. NO OTHER NEEDS VOICED. PT RESTING COMFORTABLY. WILL CONTINUE TO MONITOR
--- NOTE | 2020-08-16 00:38 | NUR ---
PT LYING IN BED EYES CLOSED RESTING. HOB ELEVATED. CONTINUES ON 5L VIA HF NC. RR EVEN AND UNLABORED. CALL LIGHT WITHIN REACH. WILL CONTINUE TO MONITOR
--- NOTE | 2020-08-16 02:58 | NUR ---
PT LYING IN BED SUPINE EYES CLOSED RESTING. HOB ELEVATED. RR EVEN AND UNLABORED. CALL LIGHT WITHIN REACH. WILL CONTINUE TO MONITOR
--- NOTE | 2020-08-16 05:14 | NUR ---
PT ELECTROLYTE PROTOCOL NO AM LABS TODAY. PT ALSO REFUSED TO WEIGH THIS AM NOT FEELING WELL.
--- NOTE | 2020-08-16 06:13 | NUR ---
FSBS 52, PT IS ASYMPTOMATIC. PROVIDED 4OZ CHERRY, PATRICIA IMLLER, AND JEANNE BELTRÁN. WILL RECHECK AT 0630.
--- NOTE | 2020-08-16 06:35 | NUR ---
FSBS 93. PT IS RESTING COMFORTABLY. CONTINUES ON 5L VIA HF NC. DENIES ANY NEEDS OR PAIN. CALL LIGHT WITHIN REACH. FALL PRECAUTIONS IN PLACE. CPOC
[2020-08-16 08:00] VITALS: BP 128/62
--- NOTE | 2020-08-16 08:00 | NUR ---
SHIFT ASSMT COMPLETED.
--- NOTE | 2020-08-16 10:00 | NUR ---
TELEMETRY READING 90 SR.
--- NOTE | 2020-08-16 18:57 | NUR ---
RECEIVED PT SITTING UP IN W/C TALKING ON PHONE WITH DAUGHTER. ALERT AND ORIENTED X4. DENIES ANY PAIN. REQUESTED ASSIST TO RESTROOM. ASSIST WITH MIN ASSIST. ORAL AND HAND HYGIENE PERFORMED. ASSISTED TRANFER FROM W/C TO BED WITH MOD ASSIST. CONTINUES ON 5L VIA HF NC. SOB NOTED WITH EXERTION. HOB ELEVATED 40 DEGREES. NO OTHER NEEDS VOICED. CALL LIGHT WITHIN REACH. FALL PRECAUTIONS IN PLACE. CPOC
[2020-08-16 20:00] VITALS: BP 119/56
--- NOTE | 2020-08-16 21:27 | NUR ---
TELEMETRY 90 SR PER MAYRA GLOBAL CHIEF EXPERIENCE OFFICER
--- NOTE | 2020-08-16 22:42 | NUR ---
PT LYING IN BED SUPINE EYES CLOSED RESTING. HOB ELEVATED. RR EVEN AND UNLABORED. CONTINUES ON 5L VIA HF NC. CALL LIGHT WITHIN REACH. WILL CONTINUE TO MONITOR
--- NOTE | 2020-08-17 00:10 | NUR ---
ASSISTED PT TO RESTROOM AND BACK TO BED WITH MOD ASSIST. HAND HYGIENE PERFORMED. PT LYING IN BED ON RIGHT SIDE USING PILLOWS. HOB ELEVATED. CONTINUES ON 5L VIA NC. CALL LIGHT AND WATER WITHIN REACH. FALL PRECAUTIONS IN PLACE. WILL CONTINUE TO MONITOR
--- NOTE | 2020-08-17 02:06 | NUR ---
PT LYING IN BED EYES CLOSED RESTING ON RIGHT SIDE. RR EVEN AND UNLABORED. WILL CONTINUE TO MONITOR
--- NOTE | 2020-08-17 03:28 | NUR ---
ASSISTED PT TO RESTROOM AND BACK TO BED WITH MOD ASSIST. NO ACUTE DISTRESS NOTED. HEELS FLOATED. WILL CONTINUE TO MONITOR
--- NOTE | 2020-08-17 05:27 | NUR ---
NO LABS TODAY FOR EP
--- NOTE | 2020-08-17 06:00 | NUR ---
FSBS 68. GAVE 4OZ AJ AND VANILLA PUDDING WITH PATRICIA MILLER PER PT REQUEST. PT CONTINUES TO C/O RIGHT KNEE PAIN THIS AM TYLENOL WAS GIVEN EARLIER. WILL INFORM DR. VIVAS OF ISSUES WITH AM BS AND KNEE PAIN. WILL RECHECK BS.
[2020-08-17 08:00] VITALS: BP 109/58
--- NOTE | 2020-08-17 08:00 | NUR ---
SHIFT ASSMT COMPLETED.BREAKFAST TRAY GIVEN.
--- NOTE | 2020-08-17 10:00 | NUR ---
TAKEN TO BATHROOM,VOIDED AND RETURNED TO .SITTING UP IN ROOM.
--- NOTE | 2020-08-17 15:46 | RHP ---
PATIENT: MILES VU MEDICAL RECORD: [id number] ACCOUNT: [id number] LOCATION:[facility]1116 : 51 ADMISSION DATE: 08/13/20 REHABILITATION HISTORY AND PHYSICAL EXAMINATION POST ADMISSION PHYSICIAN EXAMINATION ADMITTING DIAGNOSIS: Cardiac disorder with new onset exacerbation of congestive heart failure. HISTORY OF PRESENT ILLNESS: The patient is a 69-year-old morbidly obese female presented to Emergency Room Department on 08/05 from her physician's office with bilateral lower extremity edema and shortness of breath. The patient had recently been to her PCP for COVID swab and put on antibiotics. Arrived to the ED, she had shortness of breath, bilateral lower extremity edema, orthopnea, tachycardia. A repeat COVID test was done, it was negative. Chest x-ray showed congestive changes. She had a pleural effusion. She had a mildly elevated troponin and pro-BNP. She was given Cardizem bolus and metoprolol. The patient was seen by cardiology during her stay and started on a Cardizem drip. She has also been given Lasix. The patient was admitted to the hospital. Her heart rates remained in 140s even with the Cardizem drip. Cardiology placed her on amiodarone and metoprolol, her tachyarrhythmias improved somewhat on 08/07, her bilateral lower extremities was still red and oozing, her rhythm was still in uncontrolled atrial flutter with elevated rates. She was continued on IV medications and on Eliquis. On 08/11, she had a successful cardioversion. Previously, she was living with her daughter and was independent with ADLs and mobility. She had to walk up 2 flights of stairs to get into her house. Currently, she is mod to max assist for ADLs and mobility. She tires easily. Had exertional shortness of breath. She is in a normal sinus rhythm. She has ambulated 40 feet with physical therapy, using a rolling walker and gait belt. She does continue to have lower extremity edema, at times it weeps and she has Unna boots bilaterally. She would like to return home at her prior level of functioning. COMORBIDITIES: Include weakness, got a history of diabetes, hypertension, pleural effusion, morbid obesity, anemia, hyponatremia, prerenal azotemia, elevated troponin and elevated BNP. PAST MEDICAL HISTORY: Significant for cataracts, diabetes, irregular heart rate. PAST SURGICAL HISTORY: Includes a kidney stone surgery. ALLERGIES: SULFA AND CODEINE. CURRENT MEDICATIONS: Include Actos 45 mg daily, metoprolol 50 mg daily, furosemide 40 mg daily, metformin 2000 mg daily. She is on a sliding scale insulin, low resistant. She is on diltiazem 120 b.i.d., atorvastatin 10 mg at bedtime, amiodarone 200 mg b.i.d. She is on glucose replacement protocol and electrolyte protocol at this time. HABITS: No alcohol or tobacco use. FAMILY HISTORY: Noncontributory. SOCIAL HISTORY: The patient hopes to return back home and get back to her prior HISTORY AND PHYSICAL [id number] KEATON VUAREDixie Boateng level of functioning. REVIEW OF SYSTEMS: GENERAL: Does complain of weakness and fatigue. HEENT: Denies cold, cough, or congestion. CARDIOVASCULAR: Denies any chest pain. LUNGS: Does complain of shortness of breath especially with activity. VITAL SIGNS: Show a temperature of 97.5, her pulse is 94, respirations 23, blood pressure is 128/59 with a pulse ox of 92%. GENERAL: A morbidly obese female, in no distress upon exam. HEENT: Normocephalic and atraumatic. Mucosa moist. NECK: Supple. No lymphadenopathy. LUNGS: Clear in upper noguera with decreased breath sounds in the bases secondary to body habitus. CARDIOVASCULAR: Regular rate and rhythm. No murmurs, rubs or gallops. ABDOMEN: Soft, benign, obese. EXTREMITIES: Does have peripheral edema with some redness noted. NEUROLOGIC: She does have diffuse weakness, especially in the proximal muscles of her arms and legs. LABORATORY DATA: White count is 9.7, H&H 9.7 and 33.8, platelet count 365. Sodium 139, potassium 4.3, BUN and creatinine of 35 and 0.9, and blood sugar is noted to be 215. ASSESSMENT: This 69-year-old female patient admitted to the rehab with a working diagnosis of uncontrolled atrial flutter and also congestive heart failure. The patient has potential to make improvement. We instituted the following multidisciplinary therapies including, but not limited to physical, occupational, respiratory, speech, nutritional services, prosthetics and orthotics. Given her complex medical condition and risks for more complications, rehabilitation services cannot be provided at a low level of care such as skilled nurse facility. PLAN: 1. Admit to [facility] for inpatient therapy to include the following disciplines: A. Physical therapy to improve gait, all transfer skills and bed mobility to a modified independent level. B. Occupational therapy to improve activities of daily living. C. Case management to help with discharge planning and placement options. D. Nutrition to assist with nutritional needs. E. Rehabilitation nursing to assist in monitoring the patient's underlying medical conditions and to assist with any type of bowel or bladder management. 2. The patient's current medication and medical care will be continued. 3. Place on standard fall precautions. 4. We will continue on amiodarone and metoprolol and diltiazem and watch her heart rate. 5. I will see again in the a.m. TRANSINT:[id number] Voice Confirmation ID: [id number] DOCUMENT ID: [id number] TIFFANI notes whether there has been none or any medical/functional change since admission: - No change since preadmission screen. HISTORY AND PHYSICAL [id number] MILES VU attests patient continues to be appropriate for IRF: - Continues to be appropriate. LOVE VIVAS MD at 1546 CC: [id number] DICTATION DATE: 08/14/20 0856 MALE INFERTILITY SPECIALIST: 08/14/20 0932 ADM IN [facility] [address] [place] [address]
--- NOTE | 2020-08-17 18:48 | NUR ---
RECEIVED PT SITTING UP IN W/C. ALERT AND ORIENTED X4. DENIES ANY PAIN OR NEEDS. DAUGHTER AT BEDSIDE. NO ACUTE DISTRESS NOTED. CONTINUES ON 5L VIA HF NC. BLE RODRIGO BOOTS INTACT. BLE +4 DEPENDENT EDEMA. BUE +1 EDEMA. CALL LIGHT AND WATER WITHIN REACH. FALL PRECAUTIONS IN PLACE. CPOC
[2020-08-17 19:45] VITALS: BP 118/56
--- NOTE | 2020-08-17 19:45 | NUR ---
SHIFT ASSESSMENT COMPLETE. VS STABLE. ASSISTED TO RESTROOM WITH MIN ASSIST. PERICARE AND HAND HYGIENE PERFORMED INDEPENDENTLY. MIN ASSIST WITH CHANGING INTO [place]. TELE 92 SR PER MAYRA. TRANSFERED FROM W/C TO BED WITH MIN ASSIST. ASSISTED INTO BED WITH MOD ASSIST. HEELS BRIDGED. NO OTHER NEEDS VOICED. DENIES PAIN. DAUGHTER CLAIRE AT BEDSIDE. CALL LIGHT WITHIN REACH. FALL PRECAUTIONS IN PLACE. CPOC
--- NOTE | 2020-08-17 21:00 | NUR ---
FSBS 135, PROVIDED PT WITH HS SNACK. WILL RECHECK BS AT 2200 BEFORE ADMINISTERING LANTUS 70UNITS D/T BS DROPPING IN 50-60 BY AM CHECK EVEN WITH HS SNACK PROVIDED.
--- NOTE | 2020-08-17 21:23 | NUR ---
per JANETH NUNEZ FRAME STYLIST, 92 SR
--- NOTE | 2020-08-17 23:09 | NUR ---
PT LYING IN BED SUPINE WITH LEFT HIP PROPPED USING PILLOWS FOR PRESSURE RELIEF. HOB ELEVATED. CONTINUES ON 5L VIA HF NC WITH HUMIDITY. HEELS BRIDGED. RR EVEN AND UNLABORED. CALL LIGHT AND WATER WITHIN REACH. WILL CONTINUE TO MONITOR
--- NOTE | 2020-08-18 01:10 | NUR ---
ASSISTED PT TO RESTROOM AND BACK TO BED WITH MOD ASSIST. POSITIONED IN BED ON LEFT SIDE USING PILLOWS. CONTINUES ON 4L VIA HF NC. CALL LIGHT WITHIN REACH. FALL PRECAUTIONS IN PLACE. CPOC
--- NOTE | 2020-08-18 03:30 | NUR ---
REPOSITIONED PT TO RIGHT SIDE USING PILLOWS. NO OTHER NEEDS VOICED. DENIES PAIN. CALL LIGHT WITHIN REACH. WILL CONTINUE TO MONITOR
--- NOTE | 2020-08-18 06:00 | NUR ---
PT LYING IN BED ON LEFT SIDE EYES CLOSED RESTING COMFORTABLY. EASILY AROUSED WITH STIMULI. FSBS 74. 4OZ CHERRY AND PATRICIA MILLER PROVIDED. PT IS ASYMPTOMATIC WITH BS. DENIES ANY NEEDS. CALL LIGHT WITHIN REACH. FALL PRECAUTIONS IN PLACE. CPOC
[2020-08-18 07:13] LABS: BASOPHILS 0.1 % (0-2); EOSINOPHILS 2.5 % (0-7); HEMATOCRIT 33.6 % (36.0-48.0); HEMOGLOBIN 9.5 g/dL (12-16); IMMATURE GRANULOCYTES 0.3 % (0-5); LYMPHOCYTES 12.5 % (15-50); MCH 25.1 pg (26.0-34.0); MCHC 28.3 g/dL (31.0-37.0); MCV 88.7 fL (80.0-100.0); MEAN PLATELET VOLUME 8.4 fL (7.4-10.4); MONOCYTES 10.5 % (2-11); NEUTROPHILS 74.1 % (40-80); PLATELET COUNT 358 10x3/uL (130-400); RBC 3.79 10x6/uL (4.00-5.40); RDW 14.9 % (11.5-14.5); WBC 6.7 10x3/uL (4.8-10.8)
[2020-08-18 07:28] LABS: ANION GAP 3.6 mmol/L (8-16); CALCIUM 8.8 mg/dL (8.5-10.1); CARBON DIOXIDE 39.5 mmol/L (21.0-32.0); CREATININE - SERUM 0.9 mg/dL (0.6-1.3); POTASSIUM - SERUM 4.1 mmol/L (3.5-5.1)
[2020-08-18 07:40] VITALS: BP 107/50
--- NOTE | 2020-08-18 10:41 | NUR ---
Nutrition Follow-up: Chart reviewed. MD notes that patient is having some low blood sugars. Diet: Diabetic Low Sodium PO intake: 75-100% x all meals Last BM: 08/17/20. Wt: 243# (08/15/20) Meds noted: lantus, glipizide, lasix, metformin, SSI. Labs noted: Glu 85(WNL) Skin: venous stasis to R/L lower legs with delores boots Recommend continue current diet. MD to adjust insulin for blood sugar control. RD following.
--- NOTE | 2020-08-18 12:17 | NUR ---
SITTING UP IN WC IN ROOM FOR LUNCH. HAS BEEN UP WORKING WITH THERAPY THIS MORNING. MOVEMENTS ARE SLOW BUT SHE DOES MOST TASKS HERSELF. SHE DOES REQUEST HELP GETTING HER LEGS IN AND OUT OF BED. THEY AREA STILL WRAPED IN UNNA BOOTS AND WANDY WRAP. SHE DENIES INCREASED SOB AND REMAINS ON OXYGEN 4L VIA HIGH FLOW NC. CALL LIGHT IN REACH. BED IN LOWEST POSITION.
--- NOTE | 2020-08-18 15:40 | NUR ---
SITTING P IN WC IN ROOM. BLE STILL WRAPED AND OXYGEN IN USE AT 4L HIGH FKIW NC.
[2020-08-18 19:29] VITALS: BP 148/72
--- NOTE | 2020-08-18 20:00 | NUR ---
AWAKE AND ALERT. SITTING IN WHEELCHAIR IN ROOM TALKING WITH DAUGHTER. O2/4L ON PER NASAL CANNULA. SHORT OF BREATH AT REST. GENERALIZED EDEMA. SINUS RHYTHM AT 90 BMP ON TELEMETRY. CALL LIGHT IN REACH.
--- NOTE | 2020-08-18 23:35 | NUR ---
PATIENT WANTS BLOOD SUGAR CHECKED. RESULTS 147.
--- NOTE | 2020-08-18 23:37 | NUR ---
REPOSITIONED FOR COMFORT. MEDICATED FOR BACK PAIN SEE MAR.
--- NOTE | 2020-08-19 00:48 | NUR ---
RESTING IN BED WITH RESPIRATIONS UNLABORED. NO DISTRESS NOTED.
--- NOTE | 2020-08-19 02:28 | NUR ---
CONTINUES SLEEPING WITH NO DISTRESS NOTED.
--- NOTE | 2020-08-19 06:15 | NUR ---
QUIET HOURS. NO ACUTE CHANGES IN CONDITION THIS SHIFT. REMAINS SHORT OF BREATH WITH MINIMAL EXERTION. 94 SINUS RHYTHM ON TELEMETRY. RODRIGO BOOTS IN PLACE.
--- NOTE | 2020-08-19 06:33 | NUR ---
AWAKE AND SITTING IN WHEELCHAIR LAYING WITH HEADON TABLE. STATES SHE FEELS TIRED. BLOOD SUGAR 46. ORANGE JUICE AND SUGAR GIVEN TO DRINK AND CRACKERS AND PUDDING TO EAT. WILL RECHECK WITHIN 30 MINUTES. SKIN WARM AND DRY. ALERT AND ORIENTED. CALL LIGHT IN REACH.
--- NOTE | 2020-08-19 06:53 | NUR ---
BLOOD SUGAR NOW 90. STATES SHE FEELS BETTER. ONCOMING NURSE MADE AWARE OF AM BLOOD SUGAR.
--- NOTE | 2020-08-19 08:00 | NUR ---
SITTING UP IN BED FOR BREAKFAST. MOVEMENTS ARE SLOW. SHE IS WEARING OXYGEN AT 4L HIGH FLOW NC. UNNA BOOTS TO BLE IN PLACE. BED IN LOWEST POSITION, CALL LIGHT IN REACH, SIDE RAILS UP X2
[2020-08-19 08:36] VITALS: BP 105/40
--- NOTE | 2020-08-19 19:13 | NUR ---
AWAKE AND ALERT. SITTING IN WHEELCHAIR. O2/4L ON PER NASAL CANNULA. NO NEEDS VOICED.
[2020-08-19 20:11] VITALS: BP 128/67
--- NOTE | 2020-08-19 23:11 | NUR ---
PATIENT IS SLEEPING AND ASSISTANT CURATOR REPORTED THAT JUMA'S HEART RATE IS RUNNING 120-[address] VIVAS CALLED. ORDER RECEIVED TO CONSULT CARDIOLY FOR AM. ORDER PLACED FOR CARDIOLOGY CONSULT/DR CHEN. WILL CONTINUE TO MONITOR PATIENT.
--- NOTE | 2020-08-20 01:21 | NUR ---
ASSISTED TO BATHROOM AND BACK TO BED. O2/4L ON PER NASAL CANNULA. HEAD OF BED ELEVATED TO 45 DEGREES. CALL LIGHT IN REACH.
--- NOTE | 2020-08-20 01:57 | NUR ---
PRODUCE ASSOCIATE CALLED AND STATED PATIENT WAS NOW IN SINUS RHYTHM IN THE S WITH OCCASSIONAL INCREASED TO 102. PAITENT RESTING IN BED.
--- NOTE | 2020-08-20 04:58 | NUR ---
RESTING QUIETLY. O2/4L ON PER HF. TRACING SINUS RHYTHM AT 100BPM ON TELEMETRY. NO ACUTE DISTRESS NOTED.
[2020-08-20 05:49] LABS: BASOPHILS 0.1 % (0-2); EOSINOPHILS 2.5 % (0-7); HEMATOCRIT 33.6 % (36.0-48.0); HEMOGLOBIN 9.8 g/dL (12-16); IMMATURE GRANULOCYTES 0.1 % (0-5); LYMPHOCYTES 11.8 % (15-50); MCH 25.9 pg (26.0-34.0); MCHC 29.2 g/dL (31.0-37.0); MCV 88.7 fL (80.0-100.0); MEAN PLATELET VOLUME 8.6 fL (7.4-10.4); MONOCYTES 11.5 % (2-11); PLATELET COUNT 360 10x3/uL (130-400); RBC 3.79 10x6/uL (4.00-5.40); WBC 6.7 10x3/uL (4.8-10.8)
[2020-08-20 06:07] LABS: CALCIUM 8.6 mg/dL (8.5-10.1); CHLORIDE - SERUM 101 mmol/L (98-107); CREATININE - SERUM 0.8 mg/dL (0.6-1.3); GLUCOSE 83 mg/dL (74-106); POTASSIUM - SERUM 3.8 mmol/L (3.5-5.1); SODIUM 143 mmol/L (136-145); eGFR NON AFRICAN AMERICAN 75 mL/min (90-120)
[2020-08-20 06:20] LABS: CALC OSMOLALITY 284 mosm/kg (275-300); UREA NITROGEN 16 mg/dL (7-18)
[2020-08-20 06:21] LABS: CARBON DIOXIDE 41.9 mmol/L (21.0-32.0)
[2020-08-20 07:23] VITALS: BP 130/61
--- NOTE | 2020-08-20 08:00 | NUR ---
SHIFT ASSMT CONMPLETED.UP OOB IN WC,BREAKFAST GIVEN.
--- NOTE | 2020-08-20 10:25 | NUR ---
have left 2 phone messages with Mallory Jacobson that the fax number is not working and have ask her to leave me a a new fax number to send updates that are due today.
--- NOTE | 2020-08-20 12:58 | NUR ---
CARE TEAM MEETING: PATIENT IS DOING WELL IN THERAPY . HER TENATIVE DC DATE IS 08/26/20. WILL CONTINUE TO FOLLOW WITH PATIENT.
--- NOTE | 2020-08-20 16:00 | NUR ---
SITTING UP IN CHAIR.
--- NOTE | 2020-08-20 16:45 | NUR ---
HAD O2 OFF LAST 45 MINS ;O2 SAT CHECKED AND NOTED 77% ON RA.PLACED BACK ON O2 AT 4L AND TOOK 6-7MINS TO BRING SAT UP TO 92%.
[2020-08-20 19:50] VITALS: BP 118/52
--- NOTE | 2020-08-20 19:54 | NUR ---
AWAKE AND ALERT. ASSISTED TO BATHROOM AND BACK TO BED. O2/4L ON PER NASAL CANNULA. HEART RATE 102. SITTING IN WHEELCHAIR TALKING WITH DAUGHTER. NO DISTRESS NOTED.
--- NOTE | 2020-08-21 00:49 | NUR ---
RESTING QUIETLY. NO DISTRESS NOTED.
--- NOTE | 2020-08-21 05:08 | NUR ---
QUIET HOURS. NO ACUTE CHANGES IN CONDITION THIS SHIFT. RESTING IN BED WITH NO DISTRESS NOTED. SINUS RHYTHM 78 ON TELEMETRY.
[2020-08-21 08:00] VITALS: BP 111/47
--- NOTE | 2020-08-21 08:00 | NUR ---
SHIFT ASSMT COMPLETED.BREAKFAST GIVEN.CL IN REACH.
--- NOTE | 2020-08-21 09:48 | NUR ---
CLINICAL UPDATE FAXED TO TODD/DEBORAH AT , AUTH. # [id number] WITH FAX CONFORMATION RECIEVED.
--- NOTE | 2020-08-21 18:40 | NUR ---
RECEIVED PT SITTING UP IN W/C. ALERT AND ORIENTED X4. DENIES ANY NEEDS OR PAIN. DAUGHTER AT BEDSIDE. RODRIGO BOOTS INTACT WITH 2 FINGER WIDTH TOP AND BOTTOM. BLE EDEMA +3. CONTINUES ON 4L HF NC. TELEMETRY ON AND FUNCTIONAL. CALL LIGHT AND WATER WITHIN REACH. FALL PRECAUTIONS IN PLACE. CPOC
[2020-08-21 20:20] VITALS: BP 113/53
--- NOTE | 2020-08-21 23:56 | NUR ---
PT LYING IN BED ON RIGHT SIDE EYES CLOSED RESTING COMFORTABLY. RR EVEN AND UNLABORED. CALL LIGHT WITHIN REACH. WILL CONTINUE TO MONITOR
--- NOTE | 2020-08-22 01:51 | NUR ---
ASSISTED PT TO RESTROOM AND BACK TO BED WITH MIN ASSIST. POSITIONED SUPINE IN BED WITH PILLOW UNDER LEFT HIP, HEELS BRIDGED. CALL LIGHT WITHIN REACH. FALL PRECAUTION IN PLACE. CPOC
--- NOTE | 2020-08-22 04:08 | NUR ---
PT LYING IN BED EYES CLOSED RESTING. HOB ELEVATED. HEELS BRIDGED. RR EVEN AND UNLABORED. CALL LIGHT WITHIN REACH.
--- NOTE | 2020-08-22 05:10 | NUR ---
PT LYING IN BED ON LEFT SIDE. EASILY AROUSED WITH STIMULI. TOILETING OFFERED, PT DENIES NEED. PT REFUSED TO WEIGH, PT STATES SHE DOES NOT WANT TO GET UP JUST TO WEIGH. DENIES ANY PAIN. CALL LIGHT AND WATER WITHIN REACH. FALL PRECAUTIONS IN PLACE. CPOC
[2020-08-22 06:09] LABS: BASOPHILS 0.2 % (0-2); EOSINOPHILS 2.4 % (0-7); HEMATOCRIT 32.4 % (36.0-48.0); HEMOGLOBIN 9.4 g/dL (12-16); IMMATURE GRANULOCYTES 0.2 % (0-5); LYMPHOCYTES 14.1 % (15-50); MCH 25.4 pg (26.0-34.0); MCV 87.6 fL (80.0-100.0); MEAN PLATELET VOLUME 8.7 fL (7.4-10.4); NEUTROPHILS 73.1 % (40-80); PLATELET COUNT 337 10x3/uL (130-400); RDW 15.4 % (11.5-14.5); WBC 6.2 10x3/uL (4.8-10.8)
[2020-08-22 06:24] LABS: ANION GAP 3.2 mmol/L (8-16); CALCIUM 8.8 mg/dL (8.5-10.1); CARBON DIOXIDE 39.7 mmol/L (21.0-32.0); POTASSIUM - SERUM 3.9 mmol/L (3.5-5.1)
--- NOTE | 2020-08-22 06:25 | NUR ---
ASSISTED PT TO RESTROOM WITH MIN ASSIST. PT WEIGHED 238.8 STANDING SCALE. FSBS 109. SITTING UP AT BEDSIDE IN W/C. CALL LIGHT WITHIN REACH.
[2020-08-22 08:00] VITALS: BP 119/56
--- NOTE | 2020-08-22 12:03 | NUR ---
NUTRITION FOLLOW UP: COMMENTS: Patient has been eatin well for the past 9 meals with most meals eaten at 75%. Patient has been having regular bowel movements and no recent significant weight changes DHS. DIET: Regular Diet PO INTAKE: 82% avg for last 9 meals WEIGHT: 08/20- 239 lbs; 08/22- 239 lbs BM: x1 on 08/21 SIG MEDS: Lasix, Metformin, Humulin, Lipitor, Actos, Lantus SIG LABS: BUN- 23(H), A1c-8.0(H), POC Glucose- 109, 256, 148, 183, 179 RECOMMENDATIONS: Continue current diet Offer nutritional supplements if PO intake becomes <50% avg for meals RD to continue to follow and monitor patient DHS
--- NOTE | 2020-08-22 15:51 | NUR ---
Unna boots changed today. Legs cleansed and dried. Right lower leg has a scab and areas of dry peeling skin. Left lower leg has 1 area of peeling open skin. There is no odor. As evidenced by the dressings, the right leg has a small amount of drainage. Wound care continues to monitor. Next dressing change is Tuesday08/29/2020.
--- NOTE | 2020-08-22 15:55 | NUR ---
LAYING IN BED RESTING QUIETLY WITH EYES CLOSED. UNNA BOOTS WERE CHANGED BY JANETH FRANCO, THE WOUND CARE NURSE. DRYING DIME SIZED AREAS (X4) ON RLE AND (X2) ON LLE NOTED. SMALL AMOUNT OF DRAINAGE HAD SEEPED THROUGH THE UNNA BOOT AND OUTER WANDY WRAP. SHE DENIES PAIN WITH DSG CHANGES. BLE ARE STILL SWOLLEN AND VERY HEAVY. CALL LIGHT IN REACH, SIDE RAILS UP X2, BED IN LOWEST POSITION
--- NOTE | 2020-08-22 19:06 | NUR ---
PT SITTING UP IN BED. ALERT AND ORIENTED X3. DENIES ANY NEEDS OR PAIN. TOILETING OFFERED, PT DENIES NEED. NO ACUTE DISTRESS NOTED. CALL LIGHT AND HYDRATION WITHIN REACH. FALL PRECAUTIONS IN PLACE. CPOC
--- NOTE | 2020-08-22 19:12 | NUR ---
PT SITTING UP IN W/C VISITING WITH DAUGHTER. DENIES ANY NEEDS OR PAIN. UNNA BOOTS INTACT 2 FINGER WIDTH AT TOP AND BOTTOM NOTED. BLE EDEMA +3. CONTINUES ON 4L HF NC. TELEMETRY 95 SR PER NIMA BROKER. NO ACUTE DISTRESS NOTED. CALL LIGHT AND WATER WITHIN REACH. FALL PRECAUTIONS IN PLACE. CPOC
[2020-08-22 21:07] VITALS: BP 136/76
--- NOTE | 2020-08-22 22:11 | NUR ---
TELEMETRY 90 SR PER [place] CAREER AND TRANSITION TEACHER
--- NOTE | 2020-08-23 00:15 | NUR ---
ASSISTED PT TO RESTROOM AND BACK TO BED WITH MOD ASSIST USING W/C. POSITIONED SUPINE USING PILLOWS TO FLOAT HEELS AND UNDER EACH ARM FOR COMFORT. DENIES ANY OTHER NEEDS OR PAIN. CALL LIGHT WITHIN REACH. WILL CONTINUE TO MONITOR
--- NOTE | 2020-08-23 01:56 | NUR ---
REPOSITIONED PT TO RIGHT SIDE PER REQUEST. PILLOWS SUPPORTING LOWER BACK, BETWEEN KNEES/ANKLES. PT DENIES ANY OTHER NEEDS. NO PAIN VOICED. CALL LIGHT WITHIN REACH. WILL CONTINUE TO MONITOR
--- NOTE | 2020-08-23 05:22 | NUR ---
PT LYING IN BED ON RIGHT SIDE EYES CLOSED RESTING. RR EVEN AND UNLABORED. CONTINUES ON 5L VIA HF NC. NO ACUTE CHANGES IN CONDITION THIS SHIFT. CALL LIGHT AND WATER WITHIN REACH. WILL CONTINUE TO MONITOR
[2020-08-23 08:00] VITALS: BP 105/49
--- NOTE | 2020-08-23 08:15 | NUR ---
SITTING UP IN WC IN ROOM RESTING HEAD ON PILLOWS STACKED ON BED SIDE TABLE. DENIES INCREASED SOB OR PAIN. BLE WRAPED IN UNNA BOOTS AND COBAN. PEDAL PULSES PRESENT X2. OXYGEN IN USE 4L VIA HIGH FLOW NC. CALL LIGHT IN REACH
[2020-08-23 19:15] VITALS: BP 156/63
--- NOTE | 2020-08-23 19:15 | NUR ---
BEDSIDE REPORT COMPLETE AND CARE RESUMED. VSS. PER TELEMETRY SHE IS IN SINUS RHYTHM. SHE IS ON 4L HIGH FLOW O2 WITH AN O2 SAT OF 99%. BRAD BOOTS ON BILATERALLY. THEY ARE CDI. BED ALARM ON AND BED LOW. SHE DENIES NEEDS AT THIS TIME.
--- NOTE | 2020-08-24 01:36 | NUR ---
PT REQUESTING I CHECK HER BLOOD SUGAR BECAUSE SHE DROPS SOMETIMES DURING THE NIGHT. IT IS 78. 8 OZ OF ORANGE JUICE AND 1 VANILLA PUDDING GIVEN. SHE DENIES SYMPTOMS OF LOW BLOOD SUGAR. WILL CONTINUE TO MONITOR.
[2020-08-24 08:00] VITALS: BP 105/48
--- NOTE | 2020-08-24 12:28 | NUR ---
SITTING UP IN IN ROOM EATING LUNCH. STILL ON OXYGEN 4L VIA HIGH FLOW NC. IS NOW ABLE TO TRANSFER SELF TO TOILET FROM AND TRANSFER BACK. UNNA BOOTS STILL WRAPED AROUND BLE FROM KNEES TO TOES. DENIES PAIN OR INCREASED SOB. CALL LIGHT IN REACH, SIDE RAILS UP X2, BED IN LOWEST POSTION.
--- NOTE | 2020-08-24 17:02 | NUR ---
SITTING UP IN WC IN ROOM RESTING HEAD ON BED SIDE TABLE. DTR IN ROOM VISITING HER. DENIES NEEDS OR C/O. CALL LIGHT IN REACH, SIDE RAILS UP X2, BED IN LOWEST POSTION.
[2020-08-24 19:00] VITALS: BP 132/74
--- NOTE | 2020-08-24 19:00 | NUR ---
PT SITTING IN HER WHEELCHAIR VISITING WITH HER DAUGHTER. SHE HAD A BOWEL MOVEMENT. SHE NEEDED ASSISTANCE WIPING. HER BUTTOCKS IS RED. NO BREAKDOWN NOTED. BOUDREAUXS BUTT PASTE APPLIED. VSS. SHE DENIES PAIN OR NEEDS AT THIS TIME.
[2020-08-25 07:59] VITALS: BP 129/55
[2020-08-25 08:11] LABS: BASOPHILS 0.2 % (0-2); EOSINOPHILS 2.7 % (0-7); HEMATOCRIT 31.8 % (36.0-48.0); IMMATURE GRANULOCYTES 0.2 % (0-5); LYMPHOCYTES 10.6 % (15-50); MCH 24.9 pg (26.0-34.0); MCHC 28.3 g/dL (31.0-37.0); MCV 88.1 fL (80.0-100.0); MEAN PLATELET VOLUME 8.7 fL (7.4-10.4); MONOCYTES 10.1 % (2-11); NEUTROPHILS 76.2 % (40-80); PLATELET COUNT 359 10x3/uL (130-400); RBC 3.61 10x6/uL (4.00-5.40); RDW 15.6 % (11.5-14.5); WBC 6.4 10x3/uL (4.8-10.8)
[2020-08-25 08:18] LABS: CALC OSMOLALITY 290 mosm/kg (275-300); CALCIUM 8.3 mg/dL (8.5-10.1); CARBON DIOXIDE 38.8 mmol/L (21.0-32.0); CHLORIDE - SERUM 101 mmol/L (98-107); CREATININE - SERUM 0.8 mg/dL (0.6-1.3); GLUCOSE 138 mg/dL (74-106); POTASSIUM - SERUM 3.7 mmol/L (3.5-5.1); SODIUM 144 mmol/L (136-145); UREA NITROGEN 18 mg/dL (7-18); eGFR NON AFRICAN AMERICAN 75 mL/min (90-120)
--- NOTE | 2020-08-25 18:55 | NUR ---
ASSISTED PT WITH HYGIENE CARE PER PT REQUEST. DENIES ANY OTHER NEEDS. NO PAIN REPORTED. NO ACUTE DISTRESS NOTED. DAUGHTER AT BEDSIDE. PT UP IN ROOM IN W/C WILL CONTINUE TO MONITOR
[2020-08-25 21:25] VITALS: BP 119/52
--- NOTE | 2020-08-25 21:51 | NUR ---
TELE 90 SR PER CASSIDY
--- NOTE | 2020-08-26 01:00 | NUR ---
PT LYING IN BED EYES CLOSED RESTING. RR EVEN AND UNLABORED. CALL LIGHT WITHIN REACH. WILL CONTINUE TO MONITOR
--- NOTE | 2020-08-26 08:00 | NUR ---
SHIFT ASSMT COMPLETED.PLAN TO DC HOME TODAY.
[2020-08-26 08:13] VITALS: BP 113/46
--- NOTE | 2020-08-26 09:23 | NUR ---
PATIENT DISCHARGING HOME TODAY WITH FAMILY . [facility] WILL PROVIDE THERAPY AT HOME. [facility] WILL PROVIDE O2 AND A WALKER FOR PATIENT. DR. BRADSHAW/OLVIN 09/01/20 @ 10:30, DR. CHEN 09/16/20 @ 10:00.MILA SIGNED, IMM SERVED AND EXPLAINED, ONE GIVEN TO PATIENT AND ONE FILED IN CHART. COMPARE DATA REVIEWED PATIENT VOICED UNDERSTANDING. DISCHARGE INSTRUCTIONS FAXED TO PCP, [facility] [phone], AUTH. # [id number], AND REVIEWED WITH PATIENT AND HER DAUGHTER.
--- NOTE | 2020-08-26 10:36 | NUR ---
Nutrition Follow-up: Diet: Regular PO intake: 75-100% x all meals, has a good appetite. Last BM: 08/26/20. Wt: 238# (08/26/20); Admit Wt: 242# (08/13/20) Meds noted: lantus, glipizide, lasix, metformin, SSI. Labs noted: POC Glu 102 Skin: venous stasis to mey LE Recommend continue current diet. Patient has been educated on diabetic diet. RD following.
--- NOTE | 2020-08-26 15:15 | NUR ---
DC'D IN STABLE CONDITION WITH HOME O2.MEDS REVIEWED.
== END 2020-08-26 14:00 | disposition home or self-care (01) | DRG 292 ==
LOC: D.REHAB 16:28
PROVIDERS: ADMIT Emergency Medicine; ATTEND Emergency Medicine
DX: I11.0 Hypertensive heart disease with heart failure (principal); I48.92 Unspecified atrial flutter; J90 Pleural effusion, not elsewhere classified; E87.1 Hypo-osmolality and hyponatremia; Z68.41 Body mass index [BMI] 40.0-44.9, adult; I50.9 Heart failure, unspecified; R53.1 Weakness; E66.01 Morbid (severe) obesity due to excess calories; D64.9 Anemia, unspecified; R79.89 Other specified abnormal findings of blood chemistry; E11.65 Type 2 diabetes mellitus with hyperglycemia